=== PATIENT | male | born 1970 | race Caucasian/White ===

== ENCOUNTER 2016-10-20 03:15 | Observation (INO) | payer OTHER ==
[~2016-10-20] VITALS: Ht 180.3 cm; Wt 102.1 kg
[2016-10-20] VITALS (22 sets, daily range): BP systolic 147–229; BP diastolic 89–134; PULSE 71–100; RESP 15–21; O2SAT 95–99
[~2016-10-20 03:15] MED LIST: ASPI-973 PO; CETI10CA PO; CLOP75TA3 PO; DILT120C83 PO; GEMF600T PO; HYDR-3940 PO; INSU100I13 SUBQ; INSU100V28 SUBQ; LIP40 PO; LISI-567 PO; NITR0.4T SL; SERT100T PO; TRAZ-115 PO; [UNRECOGNIZED DRUG - CODE] TOPICAL
--- NOTE | 2016-10-20 03:28 | ED.REPORT ---
HPI-Back Pain 40 and Over Date of Service Oct 20, 2016 ED Provider: Dr. Ean Alvarado M.D. The patient is a 46 year old male with a medical history including CAD, CKD, pancreatitis, hepatitis C, diabetes mellitus, and hypertension who presents to the ED with back pain onset this morning, while sitting watching TV. Associated symptoms include bilateral calf and feet pain, left shoulder pain, and generalized weakness. He was found to be hypertensive at 229/134 in triage. The patient denies other symptoms. Nursing Notes Stated Complaint: BACK,BILATERAL KNEE, AND LEFT SHOULDER PAIN Chief Complaint: General Complaint Nursing Notes Reviewed: Yes Allergies: Coded Allergies: Beta-Blockers (Beta-Adrenergic Bloc (Verified Allergy, Severe, "see lights ", 10/20/16) Penicillins (Verified Allergy, Severe, rashes, 10/20/16) celecoxib (Verified Allergy, Severe, rashes, 10/20/16) TAKING ASPIRIN AT HOME hydrocodone bitartrate (Verified Allergy, Severe, rash.MS OKAY, 10/20/16) agitation zolpidem tartrate (Verified Allergy, Severe, Agitation, 10/20/16) TAPE (Verified Allergy, Intermediate, Rash,Itching,, 10/20/16) oxycodone (Verified Allergy, Intermediate, RASH, ITCHING, 10/20/16) alprazolam (Verified Allergy, Unknown, Hallucinations, 10/20/16) ibuprofen (Verified Allergy, Unknown, Kidney problems, 10/20/16) TAKING ASPIRIN AT HOME Scheduled Aspirin (Aspirin) 81 Mg Tablet 81 MG PO DAILY Atorvastatin (Lipitor) 40 Mg Tablet 40 MG PO DAILY Cetirizine HCl (Zyrtec) 10 Mg Capsule 10 MG PO HS Clonidine 0.3 mg/day Patch (Catapres TTS-3) 1 Each Patch 1 PATCH TOPICAL Q7D Clopidogrel Bisulfate (Plavix) 75 Mg Tablet 75 MG PO DAILY Diltiazem ER (Cardizem CD) 120 Mg Cap.er.24h 120 MG PO DAILY Gemfibrozil (Lopid) 600 Mg Tablet 600 MG PO BIDAC Hydralazine (Hydralazine) 50 Mg Tablet 100 MG PO BID Insulin Glargine (Lantus U100 Solostar Insulin Pen) 100 Unit/1 Ml Insuln.pen 40 UNIT SUBQ HS Insulin Regular, Human (HUMulin-R U100 Insulin Vial) 100 Unit/1 Ml Vial 15 UNITS SUBQ 2-3X/day Lisinopril (Lisinopril) 20 Mg Tablet 20 MG PO DAILY Sertraline HCl (Zoloft) 100 Mg Tablet 200 MG PO DAILY Trazodone (Trazodone) 50 Mg Tablet 50 MG PO HS Scheduled PRN Nitroglycerin SL (Nitrostat) 0.4 Mg Tab.subl 0.4 MG SL Q5MIN PRN PRN For Chest Pain General Time Seen by MD: 03:28 Chief Complaint Back pain Hx Obtained From: Patient Arrived By: Walk-in Sudden in Onset?: Yes Onset Occurred: 1 - 4 hours ago Symptom Duration: Since onset Caused by: Spontaneous/no mechanism Location: : Generalized (Back, lower extremities, left shoulder) Quality: Painful Severity: Current: Moderate Severity: Maximum: Moderate Pertinent Negative: Relieved by nothing Related History: Reports: Pancreatitis Recent Healthcare: No recent doctor visit Past Medical History Past Medical History [place] CAD Hepatitis C, chronic Kidney disease (chronic) with baseline creatinine 1.4 Pancreatitis History of cellulitis ( admit Jan 08-2015, I&D required for right middle finger) Obstructive sleep apnea Reports: Coronary artery disease, Diabetes mellitus, Hyperlipidemia, Hypertension Past Surgical History Multiple orthopedic surgeries, including four shoulder surgeries, four hand surgeries (including carpal tunnel release bilaterally), left knee surgery, cholecystectomy, tonsillectomy. Two Stents LAD 07/05/14, 3x cardiac stents total I&D of right middle finger on 01/10/2016 Family History Reports: Coronary artery disease, Hypertension Smoking History Former Smoker Social History Alcohol Use: "Social" Drug Use: Denies drug use Other Social History: Smokeless tobacco, Good social support, , Local resident Ambulatory Status Independent Review of Systems Review of Systems Note: + Hypertension at 229/134 Constitutional: Reports: Weakness - generalized, Denies: Fever Respiratory: Denies: Non-productive cough, Shortness of breath GI: Denies: Diarrhea, Vomiting Musculoskeletal: Reports: Back pain, Extremity pain (Bilateral calf and feet), Joint pain (Left shoulder) Complete sys rev & neg: except as marked. Physical Exam Initial Vital Signs Vital Signs (First) Date Time Temp Pulse Resp B/P Pulse Ox O2 Delivery O2 Flow Rate FiO2 10/20/16 03:20 35.6 100 18 229/134 99 Room Air Initial VS: Reviewed, Vital signs abnormal Head / Eyes: Atraumatic, Normocephalic ENT: Conjunctiva normal, No scleral icterus Neck: Supple, Full range of motion Skin: Warm, Dry, No cyanosis Psychiatric: Mood/affect normal, Behavior normal, Normal thought content General/Constitutional: Awake, Alert, No acute distress Respiratory / Chest: Breath sounds NL, Breath sounds = bilat, No respiratory distress Cardiovascular: Regular rhythm, Heart sounds NL Heart Rate / Rhythm: Positive: Tachycardia (Mild) Abdomen: Soft, Non-tender Neurologic: Oriented X3, Speech NL, No motor deficits, No sensory deficits Lower Extremity / Pelvis / MS: Neurologic intact, Vascular intact (Good distal pulses) Skin: Color NL, No rash, Warm, Dry Interpretation & Diagnostics Lab Results Interpretation Result Diagram: 10/20/16 0345 10/20/16 0345 Test 10/20/16 03:45 White Blood Count 6.2th/mm3 (3.8-10.1) Red Blood Count 4.50mil/mm3 (4.40-5.80) Hemoglobin 13.6g/dL (13.8-17.2) Hematocrit 37.9% (41.0-50.0) Mean Corpuscular Volume 84.2fL (81-100) Mean Corpuscular Hemoglobin 30.2pg (27.0-35.0) Mean Corpuscular Hemoglobin Concent 35.9% (32.0-37.0) Red Cell Distribution Width 13.1% (12.3-15.4) Platelet Count 159bil/L (150-400) Neutrophils (%) (Auto) 54.4% (40-74) Lymphocytes (%) (Auto) 36.7% (14-46) Monocytes (%) (Auto) 6.6% (4-12) Eosinophils (%) (Auto) 1.6% (0-5) Basophils (%) (Auto) 0.5% (0-3) Sodium Level 140mEq/L (134-144) Potassium Level 4.6mEq/L (3.5-5.2) Chloride Level 107mEq/L (97-108) Carbon Dioxide Level 17mmol/L (18-29) Blood Urea Nitrogen 46mg/dL (6-24) Creatinine 2.58mg/dL (0.76-1.27) Estimat Glomerular Filtration Rate 29mL/min (>59) Glucose Level 241mg/dL (60-99) Calcium Level 9.4mg/dL (8.5-10.1) Magnesium Level 1.5mg/dL (1.6-2.6) Total Bilirubin 0.2mg/dL (0.0-1.2) Aspartate Amino Transf (AST/SGOT) 14U/L (0-50) Alanine Aminotransferase (ALT/SGPT) 13U/L (0-44) Alkaline Phosphatase 51U/L (25-150) Troponin T 0.011ug/L (0.0-0.011) Total Protein 7.2g/dL (6.4-8.4) Albumin 4.4g/dL (3.4-5.0) Lab Results Interpretation: Chronic kidney injury, elevated blood glucose, CPK is pending ECG Interpretation ECG Interpretation: Sinus rhythm rate 98 Time: 03:25 Interpreted by: ED physician X-Ray Chest Interpretation Chest Xray Interpretation: Normal View: Portable, 1 view Interpretation / Wet Read by: Wet read ED physician Re-Eval/Medical Decision Med Decision/Clinical Course 6-year-old male with a history of high blood pressure currently on 5 medications and presents with elevated blood pressure, generalized body aches, and headache. He was initially evaluated by me He was treated with IV propranolol 3 doses and a sublingual nitroglycerin 3 doses with improvement but not complete normalization of his blood pressure. His care is now being turned over at change of shift to Dr. Hurt for further monitoring and evaluation and treatment and final disposition. Source of Hx: Old records Re-Evaluation/Progress : Time of Eval: 06:04 Re-Evaluation/Progress Note: Patient developed a headache after the Nitro. His pain improved for a short time but has since returned. Discussed with patient lab and x-ray results, diagnosis, and plan for transfer of care to Dr. Hurt at change of shift. Counseled Regarding: Diagnosis, Lab results Discharge & Departure Shift Change Sign-Out Patient Care Transferred: Yes (Dr. Hurt) Discussed Complaint(s): Yes Laboratory Evaluation: Lab evaluation discussed Imaging Studies: Imaging discussed Response to Therapy: Improved Impression: Primary Impression: Hypertensive urgency Additional Impressions: Body aches Hypertension Hypertension type: essential hypertension Qualified Code: I10 - Essential ( primary) hypertension Referrals: Jose Ambriz MD (PCP) Care Transferred to: Dr. Hurt Care Transferred at: 06:00 Scribe Attestation Portions of this note were transcribed by Charisma Montes. I, Dr. Alvarado, personally performed the history, physical exam, and medical decision-making; I reviewed and confirmed the accuracy of the information in the transcribed note. Signed by: Matt Posadas, 10/20/2016, 06:15 copies to: Jose Ambriz MD, Howard L MD Oct 20, 2016 03:28 CHARISMA MONTES Oct 20, 2016 03:35
[2016-10-20] MEDS ORDERED: 0.9% Sodium Chloride 1,000 ML IV ONE (03:35)
[2016-10-20 03:55] LABS: BASOPHILS % (AUTO) 0.5 % (0-3); EOSINOPHILS % (AUTO) 1.6 % (0-5); MONOCYTES % (AUTO) 6.6 % (4-12); Mean Corpuscular Hemoglobin 30.2 pg (27.0-35.0); Mean Corpuscular Volume 84.2 fL (81-100); NEUTROPHILS % (AUTO) 54.4 % (40-74); Platelet Count 159 bil/L (150-400)
[2016-10-20] MEDS ORDERED: Ondansetron 2 mg/mL 2 mL Inj ONE (04:01)
[2016-10-20] MEDS: HYDROmorphone 0.5 mg/0.5 mL iSecure Syringe IVPUSH PRN ×2 (04:02→06:13)
[2016-10-20] MEDS: MeTOProlol 1 mg/mL 5 mL Inj IVPUSH SCH ×3 (04:02→04:24)
[2016-10-20] MEDS ORDERED: Ondansetron 2 mg/mL 2 mL Inj IVPUSH PRN ×2 (04:05→08:05)
[2016-10-20 04:21] LABS: TROPONIN T 0.011 ug/L (0.0-0.011)
[2016-10-20 04:37] LABS: Magnesium 1.5 mg/dL (1.6-2.6)
[2016-10-20] MEDS ORDERED: Magnesium Sulf 2 Gm/50mL Water 2 GM in IV Premix 1 EACH IV ONE (06:10)
[2016-10-20] MEDS ORDERED: Alum-Mag Hydrox-Simeth 30 mL Suspension PO PRN (08:05)
[2016-10-20] MEDS ORDERED: HYDROcodone-APAP 5-325 mg Tablet PO PRN (08:05)
[2016-10-20] MEDS ORDERED: Polyethylene Glycol (PEG) 17 Gm Powder PO PRN (08:05)
--- NOTE | 2016-10-20 08:07 | PCM.HPMED ---
Subjective Date of Service Oct 20, 2016 Primary Provider: Admitting Physician: Primary Care Physician: Clinic,[facility] Residency Attending Physician: Allergies Coded Allergies: Beta-Blockers (Beta-Adrenergic Bloc (Verified Allergy, Severe, "see lights ", 10/20/16) Penicillins (Verified Allergy, Severe, rashes, 10/20/16) celecoxib (Verified Allergy, Severe, rashes, 10/20/16) TAKING ASPIRIN AT HOME hydrocodone bitartrate (Verified Allergy, Severe, rash.MS OKAY, 10/20/16) agitation zolpidem tartrate (Verified Allergy, Severe, Agitation, 10/20/16) TAPE (Verified Allergy, Intermediate, Rash,Itching,, 10/20/16) oxycodone (Verified Allergy, Intermediate, RASH, ITCHING, 10/20/16) alprazolam (Verified Allergy, Unknown, Hallucinations, 10/20/16) ibuprofen (Verified Allergy, Unknown, Kidney problems, 10/20/16) TAKING ASPIRIN AT HOME Exam Lab and Diagnostics Result Diagram: 10/20/16 0345 10/20/16 0345 Assessment & Plan Attending Statement Entered in error. Pt admitted to alterative. Nacho Archibald DO Oct 20, 2016 08:07 Aspirin (Aspirin) 81 Mg Tablet 81 MG PO DAILY Atorvastatin (Lipitor) 40 Mg Tablet 40 MG PO DAILY Cetirizine HCl (Zyrtec) 10 Mg Capsule 10 MG PO HS Clonidine 0.3 mg/day Patch (Catapres TTS-3) 1 Each Patch 1 PATCH TOPICAL Q7D Clopidogrel Bisulfate (Plavix) 75 Mg Tablet 75 MG PO DAILY Diltiazem ER (Cardizem CD) 120 Mg Cap.er.24h 120 MG PO DAILY Gemfibrozil (Lopid) 600 Mg Tablet 600 MG PO BIDAC Hydralazine (Hydralazine) 50 Mg Tablet 100 MG PO BID Insulin Glargine (Lantus U100 Solostar Insulin Pen) 100 Unit/1 Ml Insuln.pen 40 UNIT SUBQ HS Insulin Regular, Human (HUMulin-R U100 Insulin Vial) 100 Unit/1 Ml Vial 15 UNITS SUBQ 2-3X/day Lisinopril (Lisinopril) 20 Mg Tablet 20 MG PO DAILY Sertraline HCl (Zoloft) 100 Mg Tablet 200 MG PO DAILY Trazodone (Trazodone) 50 Mg Tablet 50 MG PO HS Scheduled PRN Nitroglycerin SL (Nitrostat) 0.4 Mg Tab.subl 0.4 MG SL Q5MIN PRN PRN For Chest Pain PMH [place] CAD Hepatitis C, chronic Kidney disease (chronic) with baseline creatinine 1.4 Pancreatitis History of cellulitis ( admit Jan 08-2015, I&D required for right middle finger) Obstructive sleep apnea Reports: Coronary artery disease, Diabetes mellitus, Hyperlipidemia, Hypertension Surgical History Multiple orthopedic surgeries, including four shoulder surgeries, four hand surgeries (including carpal tunnel release bilaterally), left knee surgery, cholecystectomy, tonsillectomy. Two Stents LAD 07/05/14, 3x cardiac stents total I&D of right middle finger on 01/10/2016 Social History Hx Alcohol Use: No Hx Substance Use: No Hx Tobacco Use: No ([id number] history quit in 2000) Smoking Status: Former Smoker Exam Vital Signs Vital Sign - Last Date Time Temp Pulse Resp B/P Pulse Ox O2 Delivery O2 Flow Rate FiO2 10/20/16 08:01 78 21 167/114 95 Room Air 10/20/16 03:20 35.6 Intake and Output 10/19/16 10/19/16 10/20/16 Cumulative From/Thru 15:00 23:00 07:00 10/20/16 03:20 - 10/20/16 04:03 Intake Total 1000 ml 1000 ml Balance 1000 ml 1000 ml Intake IV Total 1000 ml 1000 ml Lab and Diagnostics Result Diagram: 10/20/16 0345 10/20/16 0345 Nacho Archibald DO Oct 20, 2016 08:07
--- NOTE | 2016-10-20 08:30 | DRSVH ---
PROCEDURE: X-RAY CHEST ONE VIEW, PORTABLE ([id number]) INDICATIONS: hypertensive crisis TECHNIQUE: One view of the chest was acquired. COMPARISON: [facility], CR, XR CHEST 1VW (PORTABLE), 02/14/2016, 20:18. FINDINGS: Surgical changes and devices: Screws project in the right glenoid. Lungs and pleura: No pleural effusions or pneumothorax. Lungs are clear. Mediastinum: Mediastinal contours appear normal. Heart size is normal. Bones and chest wall: No suspicious bony lesions. Overlying soft tissues appear unremarkable. IMPRESSION: No acute disease Dictated by: Don Ngo M.D. on 10/20/2016 at 8:27 Approved by: Don Ngo M.D. on 10/20/2016 at 8:28
[2016-10-20] MEDS ORDERED: TORS20TA3 PO (08:36)
[2016-10-20] MEDS ORDERED: ACET1TAB12 PO (08:36)
[2016-10-20] MEDS ORDERED: SODI650T PO (08:36)
[2016-10-20] MEDS ORDERED: DULO60CA61 PO (08:36)
[2016-10-20 10:24] LABS: APPEARANCE,URINE HAZY (CLEAR,HAZY); COLOR,URINE STRAW (YELLOW); PH,URINE 5.5 (5.0-8.0)
[2016-10-20 10:25] LABS: OCCULT BLOOD,URINE NEGATIVE (NEGATIVE); UROBILINOGEN,URINE NORMAL (NORMAL)
--- NOTE | 2016-10-20 10:48 | DRSVH ---
PROCEDURE: CT BRAIN WITHOUT CONTRAST ([id number]) INDICATIONS: headache hypertension TECHNIQUE: Noncontrast 4.5 mm thick angled axial sections acquired from the foramen magnum to the vertex, with c oronal reformats. COMPARISON: [facility], CT, BRAIN W/O CONTRAST, 07/14/2015, 12:54. FINDINGS: Image quality: Excellent. CSF spaces: Basal cisterns are patent. No extra-axial fluid collections. Ventricles are normal in size and shape. Brain: No midline shift. No intracranial masses or hemorrhage. Sanchez-white matter interface is norm al. Skull and face: Calvarium and visualized facial bones are intact, without suspicious lesions. Sinuses: Visualized sinuses and mastoids are clear. IMPRESSION: No acute intracranial disease process. Dictated by: Rose Rangel MD, PhD on 10/20/2016 at 10:45 Approved by: Rose Rangel MD, PhD on 10/20/2016 at 10:47
[2016-10-20] MEDS ORDERED: INSU100I13 SUBQ (12:42)
--- NOTE | 2016-10-20 12:43 | NUR ---
Admit [facility] ER around 914. C/o back, shoulder, feet pain 08/10. BP 150/100, HR 70's in sinus rhythm, BG 161. Med Rec completed in ER by RN but reviewed up here and made minor changes. Admit completed. Oriented to room and call light. Pt ordered breakfast, at the bedside. All belongings brought with. MD aware and rounding.
--- NOTE | 2016-10-20 13:34 | DRSVH ---
PROCEDURE: MRI LUMBAR SPINE WITHOUT CONTRAST ([id number]) INDICATIONS: sudden onset back pain TECHNIQUE: Noncontrast sagittal T1 spin echo and T2 fast echo, sagittal STIR, axial T1 and T2 fast spin echo thr ough the lumbar spine. In cases with scoliosis, additional coronal T2 fast spin echo may be performe d. COMPARISON: None. FINDINGS: Image quality: Excellent. Alignment and Curvature: There is normal bony alignment. Bone Marrow: Marrow is of normal overall signal. No acute vertebral body compression fractures. Spinal Cord: Conus medullaris terminates at the T12-L1 level. Visualized cord demonstrates normal s ignal and size. Paraspinous Soft Tissues: No paravertebral masses. Mild subcutaneous dependent edema at the level o f L4-L5 L1-L2: Broad-based posterior disc bulge with minimal canal narrowing. No foraminal stenosis L2-L3: Broad-based posterior disc bulge and mild bilateral facet disease. Minimal canal narrowing. Mi ld right and moderate left foraminal stenoses L3-L4: Broad-based posterior disc bulge and mild bilateral facet disease. Mild canal narrowing. Moder ate left and mild right foraminal stenosis L4-L5: Minimal broad-based posterior disc bulge and bilateral facet disease. Minimal canal narrowing. Mild bilateral foraminal narrowing L5-S1: Broad-based posterior disc bulge and bilateral facet arthropathy. No canal stenosis. Mild righ t and no definite left foraminal stenoses IMPRESSION: Multilevel mild disc degeneration and facet arthropathy. No high-grade canal stenosis. Multiple, bilateral mild to moderate foraminal stenoses (most pronounced at L2-L3 and L3-L4 left) as detailed above by spinal level. Dictated by: Don Ngo M.D. on 10/20/2016 at 13:27 Approved by: Don Ngo M.D. on 10/20/2016 at 13:33
[2016-10-20] MEDS ORDERED: Glucose 40% Oral Gel 15 Gm Tube PO PRN (14:10)
--- NOTE | 2016-10-20 14:10 | CONS ---
[address] [address] CONSULTATION REPORT PATIENT: TOYIN KAHN : 1970 MR#: [id number] ADMIT: 10/20/2016 JOB ID: [id number] DATE OF SERVICE: 10/20/2016 RENAL CONSULTATION: HISTORY: The patient is a rather unfortunate 81-year-old white male, who was admitted to [facility] for shortness of breath and acute anemia. He has a history of end-stage renal disease and renal consultation is being sought for further evaluation of his end-stage renal disease. The patient has a history of multiple medical problems, most significantly he has metastatic stage IV colon cancer with metastasis to his liver. He has undergone a colectomy and radiation therapy. However, he continues to require ongoing transfusions about every 2-3 weeks for chronic blood loss and continues to show manifestations of cachexia and malnutrition. He has been on dialysis for several months, and despite his dismal prognosis, the patient wishes to have everything done. I have had numerous discussions with him about this and he has continued to refuse any evaluation from palliative care or hospice. Once again, yesterday he had a significantly low hemoglobin and hematocrit and was scheduled to get a unit of blood during his dialysis treatment yesterday. Following his treatment he began to complain of shortness of breath and was seen in the emergency department. Workup of this showed some evidence of COPD and bilateral pleural effusions which were mild. He was also seen by Gastroenterology who was quite familiar with his case. He has had several upper and lower endoscopies. The most recent one showed a large gastric lesion which may represent a secondary malignancy versus an ulcer. He is having a nuclear medicine study today for further evaluation. At time of admission, his hemoglobin was 7.0. This morning he states that he is still has some shortness of breath but denies any headache, nausea, vomiting, cough, wheezing, and diminished appetite or chest pain. The patient is also quite stoic and not always completely forthcoming with physical complaints. PAST MEDICAL HISTORY: Is significant for end-stage renal disease. The etiology for his end-stage renal disease is due to severe systolic congestive heart failure, hypertensive nephrosclerosis, and diabetic nephropathy. He also has a longstanding history of metastatic colon cancer, which has continued to progress. There is also a history of gout, recurrent upper GI bleed, chronic anemia of multiple etiologies, diabetes with diabetic nephropathy, COPD, and congestive heart failure. PAST SURGICAL HISTORY: Is significant for colectomy, coronary artery bypass graft surgery, back and neck surgery and pacemaker placement. ALLERGIES: He is allergic to PENICILLIN, METFORMIN and PPD. SOCIAL HISTORY: He has a longstanding history of chronic tobacco use but quit smoking some time ago. He admits to 1-3 drinks per week. He is a retired and lives at home as his is at an extended care facility. MEDICATIONS: At time of my evaluation, include labetalol, allopurinol, atorvastatin. REVIEW OF SYSTEMS: As detailed above. PHYSICAL EXAMINATION: Revealed a thin, frail, cachectic, sallow complected 81-year-old white male who was alert and oriented x3, in some mild chronic respiratory distress. He had evidence of mild conversational dyspnea but this is his norm. Vital signs showed a blood pressure of 122/84 with a heart rate of 90. HEENT examination is remarkable for pale sclerae, and bitemporal wasting. Neck is supple without adenopathy, thyromegaly or jugular venous distention. Lungs showed a few scattered rhonchi and rales. Heart was regular and rhythmical with a soft systolic murmur. Abdomen was mildly distended without any tenderness, rebound or guarding noted. He did have evidence of hepatomegaly. Extremities did not show any evidence of any clubbing, cyanosis or edema. Skin turgor is good. LABORATORY EXAMINATION: This morning his hemoglobin is 7.4, hematocrit 24.3. Sodium is 134, potassium 4.6, chloride 93, bicarbonate 26, BUN and creatinine were 20 and 2.4. His AST and ALT were normal. However, his alkaline phosphatase was 356. IMPRESSION: 1. End-stage renal disease-dialysis dependent. 2. Hypertension with hypertensive heart disease and hypertensive nephrosclerosis. 3. Diabetic nephropathy. 4. Acute anemia secondary to blood loss. RECOMMENDATION: The patient is being dialyzed today for 3.5 hours on a 2 potassium bath and a 450 blood flow. He will be given 2 units of packed red blood cells and we will run the citrate protocol. Once again I would like to thank you for allowing me to participate in the care of this most pleasant and interesting patient. I will be following him closely with you.
--- NOTE | 2016-10-20 16:02 | PCM.HPMED ---
Subjective Date of Service Oct 20, 2016 Primary Provider: Admitting Physician: Nacho Archibald DO Primary Care Physician: Alexx,[facility] Residency Attending Physician: Nacho Archibald DO Chief Complaint: Hypertensive emergency with headache History of Present Illness: 46-year-old male with a history of CAD who underwent PCI of the RCA without stent 07/15, type II diabetes, hypertension, CKD stage G4/3A, and history of hepatitis C and pancreatitis who presented to the ED this morning due to severe back pain that began very early this morning. Patient states that the pain is sharp across his lumbar region, is associated with burning sensation in the lower extremities bilaterally. Patient also complains of left upper extremity neuropathic pain with pain on the left side of his cervical region. Patient has no underlying history of neuropathy from diabetes and states that this is all new and acutely worse. Patient denies recent change in activity level, stating that he is not overly active to begin with, stating that this started while watching TV. Denies any bending and twisting. Denies bowel or bladder incontinence. Patient denies other review of systems. In the ED the patient's blood pressure was 229/134 and the patient was initially treated with metoprolol 3, nitroglycerine, and hydralazine without effect. Dr. Ryan from nephrology was consulted and started lisinopril, chlorothiazide, and Dilaudid 2, which brought the patient's blood pressure down into the 150s. Patient also received aspirin and Plavix. At home the patient is taking chlorthalidone 25 mg, clonidine 0.3 mg patch, hydralazine 100 mg, lisinopril 20 mg, and torsemide 20 mg. Patient has also been referred to [facility] due to refractory hypertension. Patient has also had a renal ultrasound with vascular assessment that was negative for renal artery stenosis. His cigar head perforator is Dr. Ryan Review of Systems: Complete review of systems performed, pertinent positives and negatives per HPI. Allergies Coded Allergies: Beta-Blockers (Beta-Adrenergic Bloc (Verified Allergy, Severe, "see lights ", 10/20/16) Penicillins (Verified Allergy, Severe, rashes, 10/20/16) celecoxib (Verified Allergy, Severe, rashes, 10/20/16) TAKING ASPIRIN AT HOME hydrocodone bitartrate (Verified Allergy, Severe, rash.MS OKAY, 10/20/16) agitation zolpidem tartrate (Verified Allergy, Severe, Agitation, 10/20/16) TAPE (Verified Allergy, Intermediate, Rash,Itching,, 10/20/16) oxycodone (Verified Allergy, Intermediate, RASH, ITCHING, 10/20/16) alprazolam (Verified Allergy, Unknown, Hallucinations, 10/20/16) ibuprofen (Verified Allergy, Unknown, Kidney problems, 10/20/16) TAKING ASPIRIN AT HOME Home Medications Aspirin (Aspirin) 81 Mg Tablet 81 MG PO DAILY Atorvastatin (Lipitor) 40 Mg Tablet 40 MG PO DAILY Cetirizine HCl (Zyrtec) 10 Mg Capsule 10 MG PO HS Clonidine 0.3 mg/day Patch (Catapres TTS-3) 1 Each Patch 1 PATCH TOPICAL Q7D Clopidogrel Bisulfate (Plavix) 75 Mg Tablet 75 MG PO DAILY Diltiazem ER (Cardizem CD) 120 Mg Cap.er.24h 120 MG PO DAILY Gemfibrozil (Lopid) 600 Mg Tablet 600 MG PO BIDAC Hydralazine (Hydralazine) 50 Mg Tablet 100 MG PO BID Insulin Glargine (Lantus U100 Solostar Insulin Pen) 100 Unit/1 Ml Insuln.pen 40 UNIT SUBQ HS Insulin Regular, Human (HUMulin-R U100 Insulin Vial) 100 Unit/1 Ml Vial 15 UNITS SUBQ 2-3X/day Lisinopril (Lisinopril) 20 Mg Tablet 20 MG PO DAILY Sertraline HCl (Zoloft) 100 Mg Tablet 200 MG PO DAILY Trazodone (Trazodone) 50 Mg Tablet 50 MG PO HS Nitroglycerin SL (Nitrostat) 0.4 Mg Tab.subl 0.4 MG SL Q5MIN PRN PRN For Chest Pain PMH SD CAD Hepatitis C, chronic Kidney disease (chronic) with baseline creatinine 1.4 Pancreatitis History of cellulitis ( admit Jan 08-2015, I&D required for right middle finger) Obstructive sleep apnea Reports: Coronary artery disease, Diabetes mellitus, Hyperlipidemia, Hypertension Surgical History Multiple orthopedic surgeries, including four shoulder surgeries, four hand surgeries (including carpal tunnel release bilaterally), left knee surgery, cholecystectomy, tonsillectomy. Two Stents LAD 07/05/14, 3x cardiac stents total I&D of right middle finger on 01/10/2016 Family History Family hx of liver and lung cancer Social History Hx Alcohol Use: Yes (in 20's) Hx Substance Use: Yes (in 20's) Hx Tobacco Use: No (82-onuk-cqwk history quit in 2000) Smoking Status: Former Smoker Living Arrangement: with Family Exam Vital Signs Vital Sign - Last Date Time Temp Pulse Resp B/P Pulse Ox O2 Delivery O2 Flow Rate FiO2 10/20/16 13:33 37.0 84 18 157/89 97 Room Air Intake and Output 10/19/16 10/19/16 10/20/16 Cumulative From/Thru 15:00 23:00 07:00 10/20/16 03:20 - 10/20/16 04:03 Intake Total 1000 ml 1000 ml Balance 1000 ml 1000 ml Intake IV Total 1000 ml 1000 ml Exam General: Patient awake and alert, no acute distress HEENT: PERRLA, EOMI, mucous membranes moist, no JVD, neck supple, no sinus tenderness on percussion Lymph: No lymphadenopathy Cardiac: Regular rate and rhythm, no murmurs, no rubs, no gallops; questionable S2 splitting heard only over the tricuspid Respiratory: CTA bilaterally no wheezes Abdomen: Obese, soft, nondistended, positive bowel sounds Osteopathic: Tenderness palpated on the spinous process T12 through S1 with paraspinal spasms bilaterally; left cervical paraspinal muscles spasm as well. Neuro: Grossly intact throughout Extremity: Trace edema in the lower extremities bilaterally, strength 5 out of 5 , tender to moderate palpation distal tibia Psych: Appropriate mood and affect Lab and Diagnostics Result Diagram: 10/20/16 0345 10/20/16 0345 X-Rays, CTs and MRIs Chest x-ray No acute disease Dictated by: Don Ngo M.D. on 10/20/2016 at 8:[address] No acute intracranial disease process. Dictated by: Rose Rangel MD, PhD on 10/20/2016 at 10:45 Lumbar spine MRI Multilevel mild disc degeneration and facet arthropathy. No high-grade canal stenosis. Multiple, bilateral mild to moderate foraminal stenoses (most pronounced at L2- L3 and L3-L4 left) as detailed above by spinal level. Dictated by: Don Ngo M.D. on 10/20/2016 at 13:27 Assessment & Plan 46-year-old male who presents with new onset neuropathies in the bilateral lower extremity and left upper extremity with acute onset of lumbar back pain who was found to have blood pressure with SBP greater than 220 and complaining also of a headache. Patient was treated with multiple medications to decrease his pressure to 157/89. Hypertensive emergency; present admission; resolving -Patient's very difficult to treat hypertension on chlorthalidone 25 mg, clonidine 0.3 mg patch, hydralazine 100 mg, lisinopril 20 mg, diltiazem 120 mg and torsemide 20 mg at home; patient states he is compliant -Patient has undergone previous ultrasound for renal artery stenosis and was evaluated by with minimal progress -He follows with Dr. Park -Restarted all home blood pressure medications patient is currently responding well -Patient has a sensitivity to beta blockers and has advanced kidney disease which complicates his course -If patient requires additional emergency decrease in blood pressure medication could try nicardipine drip Type II diabetes; well-controlled; ongoing -Patient's recent A1c was 6.3 -Decrease patient's home Lantus dose from 30 units at night to 20 -Prandial insulin and moderate sliding scale ordered -Continue to monitor blood sugar Chronic kidney disease stage G4/IIIa with decreased GFR and mild AG Acidosis; present admission; stable -Patient is following up with Dr. Ryan outpatient -Nephrology consultation -Avoid NSAIDs for pain Acute onset lower back pain; present admission; controlled -Patient presents with acute onset of cervical and lumbar back pain with what sounds like radiculopathy; no incontinence reported or paresthesias in the saddle region -Exam patient has noticeable bilateral spasms in the lumbar region as well as left-sided spasm of the trapezius -MRI of the lumbar region showed multilevel disc degeneration with mild to moderate foraminal stenosis -Patient receiving Dilaudid by mouth -OMT to be performed by hospitalist team -August trial gabapentin Hypomagnesemia; present admission; ongoing -Presented with a magnesium 1.5 -Replaced History of CAD; present admission; ongoing -Patient denies any ongoing chest pain but does have a history of PCI in 2015 -Patient placed on aspirin and Plavix on presentation -Will continue as he takes these outpatient Depression/anxiety/insomnia; present medicine; stable -Continue sertraline and trazodone for sleep Disposition: Patient is being placed on observation with expected length of stay less than 24 hours pending resolution of his hypertensive emergency. Patient wanted to follow up with PCP within a week for additional evaluation. Pain Evaluation: Adequate Pain Control VTE Prophylaxis Indicated: Contraindicated Resuscitation Status: CPR: Attempt Resuscitation Attending Statement The patient was seen and examined together with Dr. Carlisle on 10/20/16 and I have added additional information to the note above. Chandu Carlisle DO Oct 20, 2016 14:11 Elizabeth Max DO Oct 21, 2016 12:28
--- NOTE | 2016-10-20 16:05 | NUR ---
Social Work: Initial Assessment D: EMR reviewed. Pt is a 53 y/o male admited for N/V/D/ERSD/D.M. per H&P. PARVIN met with pt at bedside to conduct initial assessment. Pt was alert and oriented x3. SW explained role and wrote phone number on white board. Pt's insurance is Medicare and [place] [employer]. PCP is Chandu Carlisle DO. Pt gave verbal consent to contact sister Danette Hwang ([phone]) for discharge planning. PARVIN confirmed pt has completed DPOA/advanced directive ppw and provided a copy to the hospital. Pt does not have LTC insurance or VA benefits. Pt has no hx of HH or a SNF. Pt uses a wheelchair and a walker at baseline. Pt is a chronic dialysis pt. Pt stated he has a dialysis appointment at 10:30am 10/21. SW will inform MD. Pt states he needs assistance with most ADLS and has a caregiver through [place] 24 hours per week. SW confirmed that pt does not drive and relies on caregiver and family for transportation. Pt lives alone in a single-story apartment in [place] with 2-steps to enter. Pt confirmed family will provide transport home via POV when pt is medically stable to discharge. SW will continue to follow for needs. A: Pt who is on chronic dialysis at baseline and has a caregiver 24 hours a week through [place]. P: SW to update MD on pt's dialysis appointment at 10:30am 10/22. Pt confirmed family will provide transport home via POV when pt is medically stable to discharge. SW will continue to follow for needs. MIRYAM Yanez Addendum: 10/20/16 at 1612 by RACHAEL SHELLEY Amended: Links added.
--- NOTE | 2016-10-20 16:15 | PCM.PROC ---
Procedure Note Date of Service: Oct 20, 2016 Procedure: Procedure: Osteopathic Manipulative Treatment Subjective: The patient complains of acute back and neck pain starting a few days ago. The patient rates his current pain at an 8/10. The patient reports the pain as sharp and a burning sensation into the lower extremities. The patient denies any loss of bowel or bladder control and denies any traumatic event. The patient states that the pain started while watching TV earlier today. The patient states that not lying flat worsens the pain and lying on his side helps to relieve the neck and back pain. The patient states that the neck pain and back pain have recently increased. MRI was performed and shows some stenosis in the lumbar foramen. Risks and benefits of OMT were explained to the patient and verbal consent obtained. Osteopathic Structural Exam: Head: OAESrRl, Cervicals: C3-7 FSrRr, R SCM hypertonicity Thoracics: outlet rotated L, T3-8 NRrSl Lumbars: L3-5 NRrSl Abdomen: Diaphragm restriction on the L Ribs: inhaled first rib on the L, rib 6 inhaled on the R Pelvis: anterior L innominate Sacrum: Willam L, L S2 restriction Upper extremities: Latissimus dorsi hypertonicity on the L > R, L calvicle restriction Lower extremities: psoas tender point on the L > R Patient responded well to treatment. Status post treatment the patient stated his pain had reduced to 4/10. Osteopathic treatment modalities used: Myofascial release, Muscle Energy, Cranial, BLT, and soft tissue technique Provider and Assembler Installer Structures: Dr. Max Student Dr. Royer Garnett Student Elizabeth Almanza DO Oct 20, 2016 16:15
--- NOTE | 2016-10-20 17:27 | CONS ---
[address] [address] CONSULTATION REPORT PATIENT: TOYIN KAHN : 1970 MR#: [id number] ADMIT: 10/20/2016 JOB ID: [id number] RENAL CONSULTATION: DATE OF SERVICE: 10/20/2016 HISTORY: This patient is a 46-year-old, white male, who was well-known to me from multiple previous evaluations. He was admitted to [facility] for back pain and hypertension, and Renal consultation is being sought for further evaluation of his chronic kidney disease and hypertension. I am quite familiar with the patient; have been following him for about the last year or so. He has a history of multiple medical problems, which include coronary artery disease which he has undergone PCI of the right coronary artery, poorly-controlled type 2 diabetes which has been complicated by diabetic neuropathy and diabetic renal disease, chronic kidney disease, hepatitis C, hypertension with hypertensive heart disease and hypertensive nephrosclerosis. 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 He also relates a history of chronic back problems and neck problems as a result of several injuries and a llamas lifestyle. Last night he states he awoke about midnight with severe lumbosacral spine. Initially it was confined there but he has had some radiation into his legs and paresthesias to his both distal extremities. He states this is more of a burning-type pain and is aggravated by anything on top of his skin. He states that he has not had this type of sensation in his feet. He does relate a longstanding history of intermittent chronic back pain and neck pain. He has been working quite a bit and this may have aggravated some of this pain. In the emergency department, he was quite hypertensive and in considerable amount of pain. Although he had no evidence of any fluid loss, vomiting, diarrhea, decreased oral intake or increased urination, he was given a L of fluid and was also given metoprolol, although he is allergic to beta-blockers and hydralazine without an effect. He eventually was given Dilaudid which had significant improvement in his blood pressure. His creatinine at time of admission was 2.5 which is what he ran the last time I saw him about a month ago. He states he is currently compliant with his medication and normally his blood pressure is considerably better when he is not in pain. PAST MEDICAL HISTORY: Remarkable for stage 3 chronic kidney disease which is secondary to hypertension and poorly controlled diabetes, obstructive sleep apnea, coronary artery disease, hepatitis C, pancreatitis, hyperlipidemia, and degenerative joint disease of the back. PAST SURGICAL HISTORY: Significant for multiple orthopedic surgeries including four shoulder surgeries, hand surgeries, knee surgery, cholecystectomy, tonsillectomy, several stents placed. I and D of the middle finger. ALLERGIES: 1. BETA BLOCKERS. 2. PENICILLIN. 3. CELECOXIB. 4. HYDROCODONE. 5. ZOLPIDEM. 6. OXYCODONE. 7. ALPRAZOLAM. 8. IBUPROFEN. SOCIAL HISTORY: He denies the current use of alcohol, tobacco, or illicit drugs. 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 FAMILY HISTORY: Remarkable for liver and lung cancer. MEDICATIONS: At time of my evaluation, include aspirin, atorvastatin, clonidine, clopidogrel, diltiazem, gemfibrozil, hydralazine, insulin, lisinopril, sertraline, trazodone and nitroglycerin spray. PHYSICAL EXAMINATION: Revealed a mildly obese 46-year-old, white male who was alert and oriented x3, in no distress at time of my evaluation. Blood pressure was 154/100 with a pulse rate of 71. HEENT examination was unremarkable. Sclerae, cornea and conjunctivae were within normal limits. Neck is supple without adenopathy, thyromegaly or jugular venous distention. Lungs are clear to auscultation. Heart is regular and rhythmical with a soft systolic murmur. Abdomen is soft, without any tenderness, rebound, guarding, masses or hepatosplenomegaly. Extremities did not show any evidence of any clubbing, cyanosis, or edema. Skin turgor is good. LABORATORY EXAMINATION: Sodium is 140, potassium 4.5, chloride 107, bicarbonate 17, BUN and creatinine were 46 and 2.58. Glucose 241. Magnesium was slightly low 1.4. Hemoglobin was 13.6. IMPRESSION: 1. Stage 3 chronic kidney disease. 2. Diabetic nephropathy. 3. Hypertension with hypertensive nephrosclerosis. 4. Acute hypertension secondary to back pain which is resolved with analgesics. RECOMMENDATION: I would not give the patient any more fluids as I do not feel he requires this, and I would strongly recommend getting him appropriate radiographic evaluation for his back pain. Once again, I would like to thank you for allowing me to participate in the care of this most pleasant interesting patient. I will be following him closely with you.
[2016-10-20] MEDS: Insulin LISPRO 300 Unit/3 mL Inj SUBQ SCH ×2 (18:28→20:52)
[2016-10-20] MEDS ORDERED: Insulin GLARgine 100 Unit/mL Syringe SUBQ SCH ×2 (21:00)
[2016-10-21 03:45] VITALS: BP 161/106; PULSE 65; RESP 17; O2SAT 96
[2016-10-21] MEDS: Insulin LISPRO 300 Unit/3 mL Inj SUBQ SCH ×2 (07:59→12:16)
[2016-10-21] MEDS ORDERED: DULoxetine 30 mg DR Capsule PO SCH (08:30)
[2016-10-21 08:32] VITALS: BP 172/110; PULSE 65; RESP 18; O2SAT 98
[2016-10-21 09:00] LABS: Mean Corpuscular Hemoglobin 29.6 pg (27.0-35.0); Mean Corpuscular Volume 85.6 fL (81-100)
[2016-10-21 09:17] LABS: Magnesium 1.6 mg/dL (1.6-2.6)
[2016-10-21 10:14] VITALS: PULSE 73
[2016-10-21] MEDS ORDERED: Magnesium Sulfate 50% Inj 3 GM in Dextrose 5% 100 ML IV ONE (10:20)
--- NOTE | 2016-10-21 10:29 | PCM.DIMED ---
Andrew Polanco DO 10/21/16 1028: Discharge Instructions Date of Service Oct 21, 2016 Dates of Hospitalization Oct 20, 2016 at 08:42 Discharge Diagnosis Discharge Diagnosis Hypertensive emergency Type II diabetes Chronic kidney disease stage G4/IIIa Acute onset lower back pain Hypomagnesemia History of CAD Depression/anxiety/insomnia Diet Discharge Diet: No restrictions, Renal Diet Activity Discharge Activity: Limited until seen by PCP Call your provider Call your provider for: Fever or Chills, Shortness of breath, Bleeding, Chest pain, Vomitting, Excessive diarrhea, Weakness (unilateral) Patient Instructions Patient Instructions At your hospital stay we treated you for severely elevated blood pressure and back pain. As you stated this morning you are feeling better. We have discharged you on your home blood pressure medications. I have also sent you home on pain medications. The pain medication is called Dilaudid. You need to followup in my clinic (Andrew Polanco DO) at your next scheduled appointment which is on 10/23/2016 at 4:10pm. You will also need an appointment scheduled with Dr. Ryan of nephrology concerning your kidneys and high blood pressure within 4 weeks. If you have any worsening symptoms such as dizziness, shortness of breath, chest pain or pressure, nausea, vomiting, headache, visual changes then you need to go to the emergency department immediately. We also recommend that you try pilates. You can use youtube to watch these. Type in Pilates and Gloria Stapleton. Pilates will help you build muscle which will help you with the pain. Follow-up Provider: Andrew Polanco DO Follow-up with PCP in: 1 week Provider: Tai Ryan DO Follow-up in: 4 weeks Elizabeth Max DO 10/21/16 1219: Discharge Instructions Patient Instructions Patient Instructions Darwin trejo Attending's Statement The patient was seen and examined together with Dr. Polanco on 10/21/16 and I have added additional information to the note above. Andrew Polanco DO Oct 21, 2016 10:28 Elizabeth Max DO Oct 21, 2016 12:19
--- NOTE | 2016-10-21 10:53 | PCM.DC.MED ---
Discharge Summary Date of Service Oct 21, 2016 Dates of Hospitalization Date of Hospital Admission Oct 20, 2016 at 08:42 Date of Discharge: Oct 21, 2016 Providers: Admitting Physician: Nacho Archibald DO Primary [facility] Phys[facility] Residency Attending Physician: Nacho Archibald DO Diagnosis at Time of Discharge Diagnosis at Time of Discharge Hypertensive emergency Type II diabetes Chronic kidney disease stage G4/IIIa Acute onset lower back pain Hypomagnesemia History of CAD Depression/anxiety/insomnia Procedures XRay, CTs & MRIs Chest x-ray No acute disease Dictated by: Don Ngo M.D. on 10/20/2016 at 8:[address] No acute intracranial disease process. Dictated by: Rose Rangel MD, PhD on 10/20/2016 at 10:45 Lumbar spine MRI Multilevel mild disc degeneration and facet arthropathy. No high-grade canal stenosis. Multiple, bilateral mild to moderate foraminal stenoses (most pronounced at L2- L3 and L3-L4 left) as detailed above by spinal level. Dictated by: Don Ngo M.D. on 10/20/2016 at 13:27 Brief History This is a 46-year-old male with a history of CAD who underwent PCI of the RCA without stent in July of 2014, type II diabetes, hypertension, CKD stage G4/3A , and history of hepatitis C and pancreatitis who presented to the ED due to severe back pain that began the morning of admit. The pain began while he was watching television. Patient stated that the pain was sharp across his lumbar region and was associated with burning sensation in the lower extremities bilaterally. The patient also complained of left upper extremity neuropathic pain on the left side of his cervical region. He reported no underlying history of neuropathy from diabetes and states that this is all new and acutely worse. He denied recent changes in his activity level and stated that he is not overly active to begin with. He denied bowel or bladder incontinence. In the ED the patient's blood pressure was 229/134 and the patient was initially treated with metoprolol 3, nitroglycerine, and hydralazine without effect. Dr. Ryan from nephrology was consulted and started lisinopril, chlorothiazide, and Dilaudid 2, which brought the patient's blood pressure down into the 150s. Patient also received aspirin and Plavix. At home the patient is taking chlorthalidone 25 mg, clonidine 0.3 mg patch, hydralazine 100 mg, lisinopril 20 mg, and torsemide 20 mg. Patient has also been referred to [facility] due to refractory hypertension. Patient has also had a renal ultrasound with vascular assessment that was negative for renal artery stenosis. His deep fat fry cook is Dr. Ryan Hospital Course This is a 46-year-old male who presents with new onset neuropathies in the bilateral lower extremity and left upper extremity with acute onset of lumbar back pain. In the ER he was found to have systolic blood pressure > 220 and was complaining of a headache. Patient was treated with multiple medications to decrease his pressure. He was continued on his home blood pressure medications. On the morning of the day of discharge he was stable and stated he is feeling well. His blood pressure averaged in the 150's/90's. Discharge blood pressure 129/81. Hypertensive emergency; present admission; resolving -Patient has very difficult to treat hypertension with home medications including: chlorthalidone 25 mg, clonidine 0.3 mg patch, hydralazine 100 mg, lisinopril 20 mg, diltiazem 120 mg and torsemide 20 mg -Patient is allergic to beta blockers and has advanced kidney disease which complicates his course. -Restarted all home blood pressure medications and patient has responded well. Type II diabetes; well-controlled; ongoing -Patient's recent A1c was 6.3 -A1c pending at discharge and will be followed up on as an outpatient. -Discharge on patient's home insulin regimen. Chronic kidney disease stage G4/IIIa with decreased GFR and mild AG Acidosis; present admission; stable -Patient to followup with Dr. Ryan of nephrology in 2-4 weeks. Acute onset lower back pain; present admission; controlled -Patient presented with acute onset cervical and lumbar back pain with what sounded like radiculopathy; no incontinence reported or paresthesias in the saddle region -On exam patient has noticeable bilateral spasms in the lumbar region as well as left-sided spasm of the trapezius -MRI of the lumbar region showed multilevel disc degeneration with mild to moderate foraminal stenosis -Patient has multiple allergies to pain medications. He will be sent home with small prescription of Dilaudid. -OMT was performed in hospital with good relief of pain and patient should continue with this as outpatient. -Consider Gabapentin as outpatient. Hypomagnesemia; present admission; ongoing -Magnesium replaced before discharge. History of CAD; present admission; ongoing -Continue aspirin and plavix as outpatient. Depression/anxiety/insomnia; present medicine; stable -Continue sertraline and trazodone for sleep as outpatient. Exam Vital Signs (Last) Date Time Temp Pulse Resp B/P Pulse Ox O2 Delivery O2 Flow Rate FiO2 10/21/16 10:14 73 10/21/16 08:32 36.3 18 172/110 98 Room Air Exam General: Patient awake and alert and oriented, no acute distress HEENT: PERRLA, EOMI, mucous membranes moist, no JVD, neck supple, no sinus tenderness on percussion Lymph: No lymphadenopathy Cardiac: Regular rate and rhythm, no murmurs, no rubs, no gallops; Respiratory: CTA bilaterally no wheezes Abdomen: Obese, soft, nondistended, positive bowel sounds Osteopathic: Tenderness palpated on the spinous process T12 through S1. Neuro: Grossly intact throughout Extremity: Trace edema in the lower extremities bilaterally, strength 5 out of 5. Psych: Appropriate mood and affect Test 10/20/16 03:45 10/20/16 06:51 10/20/16 08:20 10/21/16 08:00 Neutrophils (%) (Auto) 54.4% (40-74) Lymphocytes (%) (Auto) 36.7% (14-46) Monocytes (%) (Auto) 6.6% (4-12) Eosinophils (%) (Auto) 1.6% (0-5) Basophils (%) (Auto) 0.5% (0-3) Total Creatine Kinase 248U/L (21-232) Troponin T < 0.010ug/L (0.0-0.011) Thyroid Stimulating Hormone (TSH) 3.280uIU/mL (0.450-4.500) Urine Color Straw (YELLOW) Urine Appearance Hazy (CLEAR,HAZY) Urine pH 5.5 (5.0-8.0) Urine Specific [place] 1.015 (1.003-1.035) Urine Protein 100mg/dL (NEG,TRACE) Urine Glucose (UA) 100mg/dL (NEGATIVE) Urine Ketones Negativemg/dL (NEGATIVE) Urine Occult Blood Negative (NEGATIVE) Urine Nitrite Negative (NEGATIVE) Urine Bilirubin Negative (NEGATIVE) Urine Urobilinogen Normalmg/dL (NORMAL) Urine Leukocyte Esterase Negative (NEGATIVE) Urine RBC 0-2/hpf (0-2) Urine WBC 0-5/hpf (0-5) Urine Epithelial Cells Occasional/hpf (NONE-MOD) Urine Crystals None seen (NONE SEEN) Urine Bacteria None/hpf (NONE-FEW) Urine Hyaline Casts None/lpf (NONE) Urine Granular Casts None seen (NONE SEEN) Urine Waxy Casts None seen (NONE SEEN) Urine Red Blood Cell Casts None seen (NONE SEEN) Urine White Blood Cell Casts None seen (NONE SEEN) Urine Mucus Present (None Seen) Urine Trichomonas None seen (NONE SEEN) Urine Yeast None (NONE SEEN) Urinalysis Comment None Urine Culture Reflexed Not indicated Urine Random Creatinine 58mg/dL (22-328) Urine Random Total Protein 88mg/dL (0-15) Urine Protein/Creatinine Ratio 1.52 (0-200) Hold Urine Received (Received) Test 10/21/16 08:34 White Blood Count 5.1th/mm3 (3.8-10.1) Red Blood Count 4.23mil/mm3 (4.40-5.80) Hemoglobin 12.5g/dL (13.8-17.2) Hematocrit 36.2% (41.0-50.0) Mean Corpuscular Volume 85.6fL (81-100) Mean Corpuscular Hemoglobin 29.6pg (27.0-35.0) Mean Corpuscular Hemoglobin Concent 34.5% (32.0-37.0) Red Cell Distribution Width 13.3% (12.3-15.4) Platelet Count 136bil/L (150-400) Sodium Level 139mEq/L (134-144) Potassium Level 5.5mEq/L (3.5-5.2) Chloride Level 104mEq/L (97-108) Carbon Dioxide Level 21mmol/L (18-29) Blood Urea Nitrogen 41mg/dL (6-24) Creatinine 2.51mg/dL (0.76-1.27) Estimat Glomerular Filtration Rate 30mL/min (>59) Glucose Level 211mg/dL (60-99) Calcium Level 9.3mg/dL (8.5-10.1) Magnesium Level 1.6mg/dL (1.6-2.6) Total Bilirubin 0.2mg/dL (0.0-1.2) Aspartate Amino Transf (AST/SGOT) 12U/L (0-50) Alanine Aminotransferase (ALT/SGPT) 12U/L (0-44) Alkaline Phosphatase 50U/L (25-150) Total Protein 6.5g/dL (6.4-8.4) Albumin 3.9g/dL (3.4-5.0) Discharge Medications Discharge Medications Aspirin (Aspirin) 81 Mg Tablet 81 MG PO DAILY (Reported) Cetirizine HCl (Zyrtec) 10 Mg Capsule 10 MG PO HS (Reported) Chlorthalidone (Chlorthalidone) 25 Mg Tablet 25 MG PO DAILY Prescribed by: ANDREW POLANCO DO Clonidine 0.3 mg/day Patch (Catapres TTS-3) 1 Each Patch 1 PATCH TOPICAL Q7D Prescribed by: LION MUNIZ MD Clopidogrel Bisulfate (Plavix) 75 Mg Tablet 75 MG PO DAILY Prescribed by: TRISTIN FORD MD Duloxetine (Duloxetine) 60 Mg Capsule.dr 90 MG PO DAILY (Reported) Gemfibrozil (Lopid) 600 Mg Tablet 600 MG PO BIDAC Prescribed by: TRISTIN FORD MD Lisinopril (Lisinopril) 20 Mg Tablet 20 MG PO DAILY Prescribed by: LION MUNIZ MD Sodium Bicarbonate (Sodium Bicarbonate) 650 Mg Tablet 650 MG PO DAILY (Reported ) Torsemide (Torsemide) 20 Mg Tablet 20 MG PO DAILY (Reported) As needed Acetaminophen/Codeine 300-30mg (Tylenol/Codeine #3) 1 Each Tablet 1 TABLET PO q 12 PRN PRN Pain (Reported) Hydromorphone (Dilaudid) 2 Mg Tablet 2 MG PO Q6H PRN PRN For Pain Prescribed by: ANDREW POLANCO DO Insulin Glargine (Lantus U100 Solostar Insulin Pen) 100 Unit/1 Ml Insuln.pen 10 UNIT SUBQ HS PRN PRN Blood Sugar above 80 (Reported) Insulin Regular, Human (HUMulin-R U100 Insulin Vial) 100 Unit/1 Ml Vial 15 UNITS SUBQ 2-3X/day PRN PRN If blood sugar above 200 (Reported) Nitroglycerin SL (Nitrostat) 0.4 Mg Tab.subl 0.4 MG SL Q5MIN PRN PRN For Chest Pain Prescribed by: COLIN RAMIREZ MD Trazodone (Trazodone) 50 Mg Tablet 50 MG PO HS PRN PRN prn (Reported) Followup Plan Discharge Diet: No restrictions, Renal Diet Discharge Activity: Limited until seen by PCP Patient Instructions At your hospital stay we treated you for severely elevated blood pressure and back pain. As you stated this morning you are feeling better. We have discharged you on your home blood pressure medications. I have also sent you home on pain medications. The pain medication is called Dilaudid. You need to followup in my clinic (Andrew Polanco DO) at your next scheduled appointment which is on 10/23/2016 at 4:10pm. You will also need an appointment scheduled with Dr. Ryan of nephrology concerning your kidneys and high blood pressure within 4 weeks. If you have any worsening symptoms such as dizziness, shortness of breath, chest pain or pressure, nausea, vomiting, headache, visual changes then you need to go to the emergency department immediately. We also recommend that you try pilates. You can use youtube to watch these. Type in Pilates and Gloria Daya. Pilates will help you build muscle which will help you with the pain. Follow-up Provider: Andrew Polanco DO Follow-up with PCP in: 1 week Provider: Tai Ryan DO Follow-up in: 4 weeks Time spent Greater than 35 minutes Attending Statement The patient was seen and examined together with Dr. Polanco on 10/21/16 and I agree with the history, exam and plan as outlined in the note above. copies to: Tai Ryan DO; Jeramie Park MD; Andrew Polanco Christopher DO Oct 21, 2016 10:53 Elizabeth Max DO Oct 21, 2016 16:35
--- NOTE | 2016-10-21 11:19 | PCM.PNNEPH ---
Joel Corona DO 10/21/16 1119: Subjective Date of Service Oct 21, 2016 Subjective Patient is a 46yom with MHx significant for DMII w/ neuropathy, HTN, CKD stage 4 and RACHEL presented for acute lower back pain admitted for hypertensive emergency. Nephrology was consulted for evaluation and treatment of HTN. No new complaints today. Denies any headaches, dizziness, unilateral weaknesses No SOB, CP, palpitation, or lightheadedness. Vitals blood pressure 172/110, HR 65, I's and O's 2.3/1 L. Electrolytes significant for potassium 5.5, sodium 139, chloride 104, bicarbonate 21. BUN 41, creatinine 2.[address] brain unremarkable for any acute pathologies 10/20/2016 MRI of the lower back showing high-level mild degeneration and facet arthropathy , and significant mild to moderate foraminal stenosis. 10/20/2016 Exam Vital Signs Vital Sign - Last Date Time Temp Pulse Resp B/P Pulse Ox O2 Delivery O2 Flow Rate FiO2 10/21/16 10:14 73 10/21/16 08:32 36.3 18 172/110 98 Room Air Intake and Output 10/20/16 10/20/16 10/21/16 Cumulative From/Thru 15:00 23:00 07:00 10/20/16 03:20 - 10/21/16 06:33 Intake Total 1357 ml 1817 ml 4174 ml Output Total 1000 ml 800 ml 1800 ml Balance 357 ml 1017 ml 2374 ml Intake Oral 1357 ml 1817 ml 3174 ml IV Total 1000 ml Output Urine Total 1000 ml 800 ml 1800 ml Exam General: No acute distress, appropriately interactive HEENT: Normocephalic, atraumatic. PERRLA, EOMI, Anicteric sclerae, moist conjunctivae. Neck: No JVD, No bruits. No lymphadenopathy or thyromegaly. Cardiovascular: Regular rate and rhythm with no murmurs, rubs, or gallops appreciated Pulmonary: b/l air sound with no crackles, wheezes, or rhonchi. no use of accessory muscles. Abdomen: +Bowel sound, Soft, nontender, nondistended. Extremities: No clubbing or cyanosis, no lymphedema, no b/l lower leg edema Skin: Normal temperature, turgor, and texture; no rash. No visualized skin ulcer. Neurological: CN II-VII grossly intact, moving equally on all 4 extremities Psychiatric: Normal mood and affect. AOx3 Lab and Diagnostics Result Diagram: 10/21/16 0834 10/21/16 08 X-Rays, CTs and MRIs Chest x-ray No acute disease Dictated by: Don Ngo M.D. on 10/20/2016 at 8:[address] No acute intracranial disease process. Dictated by: Rose Rangel MD, PhD on 10/20/2016 at 10:45 Lumbar spine MRI Multilevel mild disc degeneration and facet arthropathy. No high-grade canal stenosis. Multiple, bilateral mild to moderate foraminal stenoses (most pronounced at L2- L3 and L3-L4 left) as detailed above by spinal level. Dictated by: Don Ngo M.D. on 10/20/2016 at 13:27 Plan Impression Patient is a 46yom with MHx significant for DMII w/ neuropathy, HTN, CKD stage 4 and RACHEL presented for acute lower back pain admitted for hypertensive emergency. Nephrology was consulted for evaluation and treatment of HTN. HTN likely 2nd to uncontrolled back pain, insomnia. 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 He has been compliance to his antihypertensive medications which includes: chlorthalidone 25mg daily, hydralazine 100mg BID, clonidine patch 0.3 mg/24h, lisinopril 20mg daily, and torsemide 20mg daily. Patient cannot take beta-blockade 2nd to significant bradycardia. Diet has not changed. BP improved with pain control. MRI lower back showed mult mild-mod foraminal stenosis and disc degenerations. CT-head unremarkable for any acute pathologies. A contributing factor to HTN is non-compliance to CPAP. Patient was diagnosed with RACHEL and was given CPAP. However, stopped using CPAP >1wks. he reports "cant find it". Problem List # Back pain # Hypertensive emergency (resolved) # CKD stage 4, baseline Cr 2.5 # Insulin dependent DM II Plan: # Resume home antihypertensives meds as listed above # Adequate pain control per primary care # Encourage adherence to CPAP # Keep Nephrology appt with Dr. Duran in . Tai Ryan DO 10/21/16 1336: Exam Lab and Diagnostics Result Diagram: 10/21/16 0834 10/21/16 0834 Plan Plan: Pt. seen and examined with Dr. Corona, discussed with patient and . I would like to add torsemide 20mg qd and see him at hisi f/u appointment in October. He also needs a NS referal for his back. Joel Corona DO Oct 21, 2016 11:19 Tai Ryan DO Oct 21, 2016 13:36
[2016-10-21 11:41] VITALS: BP 129/81; PULSE 82; RESP 18; O2SAT 96
[2016-10-21] MEDS ORDERED: HYDR2TAB27 PO (13:46)
[2016-10-21] MEDS ORDERED: HYG25 PO (13:46)
--- NOTE | 2016-10-21 15:15 | NUR ---
discharge education pt educated about anti-hypertensive medications, CPAP use, low NA+ diet. Pt also encouraged to seek pilates and yoga videos to help back pain. Pt aware of follow up appointments and verbalizes understanding of his medication. Addendum: 10/21/16 at 1600 by SANJIV ARREGUIN RN 1600 PIV removed and pt walked out by Eliza Aldrich.
--- NOTE | 2016-10-21 16:56 | NUR ---
Social Work Note - Discharge. Guy Nguyen was able to d/c home today - family to provide transportation. Pt confirmed outpt follow up with RN and denied any other needs. FRANCISCO George
== END 2016-10-21 15:59 | disposition home or self-care (01) ==
LOC: SED 03:15 → PCC 08:42
PROVIDERS: ADMIT Family Medicine; ATTEND Family Medicine
DX: I12.9 Hypertensive chronic kidney disease with stage 1 through stage 4 chronic kidney disease, or unspecified chronic kidney disease (principal); E11.42 Type 2 diabetes mellitus with diabetic polyneuropathy; N18.4 Chronic kidney disease, stage 4 (severe); M54.5 Low back pain; E83.42 Hypomagnesemia; I25.10 Atherosclerotic heart disease of native coronary artery without angina pectoris; F41.8 Other specified anxiety disorders; G47.00 Insomnia, unspecified; B19.20 Unspecified viral hepatitis C without hepatic coma; I25.2 Old myocardial infarction; G47.33 Obstructive sleep apnea (adult) (pediatric); E78.5 Hyperlipidemia, unspecified; K85.90 Acute pancreatitis without necrosis or infection, unspecified; Z87.891 Personal history of nicotine dependence; Z95.5 Presence of coronary angioplasty implant and graft; Z79.02 Long term (current) use of antithrombotics/antiplatelets; Z79.82 Long term (current) use of aspirin; Z79.4 Long term (current) use of insulin
CPT/HCPCS: 36415; 70450; 71010; 72148; 80053; 81000; 82550; 82570; 83036; 83735; 84156; 84443; 84484; 85025; 85027; 93005; 96361; 96374; 96375; 96376; 99285; G0378; J1170; J1815; J2405; J3475; J7030

== ENCOUNTER 2016-12-01 10:53 | Observation (INO) | payer OTHER ==
[2016-12-01] VITALS (11 sets, daily range): BP systolic 138–216; BP diastolic 83–124; PULSE 65–76; RESP 14–20; O2SAT 94–98
[~2016-12-01] VITALS: Ht 180.3 cm; Wt 100.5 kg
[~2016-12-01 10:53] MED LIST changes: +ACET1TAB12 PO; -DILT120C83 PO; +DULO60CA61 PO; -HYDR-3940 PO; +HYDR2TAB27 PO; +HYG25 PO; -LIP40 PO; -SERT100T PO; +SODI650T PO; +TORS20TA3 PO
--- NOTE | 2016-12-01 11:06 | ED.REPORT ---
HPI-Chest Pain 40 and Over Date of Service Dec 01, 2016 ED Provider: Dr. Pierson Pt is a 46 year old male with a hx of chronic neck and back pain, CAD, HTN, DM and hyperlipidemia presenting to the ED complaining of chest pain and vomiting. He states that he has had nausea, vomiting, pain in his back and right neck ( chronic), intermittent chest pain, fatigue (onset this morning), headache ( onset yesterday), SOB, and chills. He has a hx of a heart attack in July 2014 and has 3 stents. Denies numbness or weakness, vision changes, fever. His last echo was 1 year ago and he was admitted in October 2016 for high blood pressure. During his admission on 10/20 pt had complained of a headache at that time and had a normal CT. Nursing Notes Stated Complaint: CHEST PAIN/VOMITING/ACHING Chief Complaint: Chest Pain Nursing Notes Reviewed: Yes Allergies: Coded Allergies: Beta-Blockers (Beta-Adrenergic Bloc (Verified Allergy, Severe, "see lights ", 12/01/16) Penicillins (Verified Allergy, Severe, rashes, 12/01/16) celecoxib (Verified Allergy, Severe, rashes, 12/01/16) TAKING ASPIRIN AT HOME hydrocodone bitartrate (Verified Allergy, Severe, rash.MS KELSEY, 12/01/16) agitation zolpidem tartrate (Verified Allergy, Severe, Agitation, 12/01/16) TAPE (Verified Allergy, Intermediate, Rash,Itching,, 12/01/16) oxycodone (Verified Allergy, Intermediate, RASH, ITCHING, 12/01/16) alprazolam (Verified Allergy, Unknown, Hallucinations, 12/01/16) ibuprofen (Verified Allergy, Unknown, Kidney problems, 12/01/16) TAKING ASPIRIN AT HOME Scheduled Aspirin (Aspirin) 81 Mg Tablet 81 MG PO DAILY Cetirizine HCl (Zyrtec) 10 Mg Capsule 10 MG PO HS Chlorthalidone (Chlorthalidone) 25 Mg Tablet 25 MG PO DAILY Clonidine 0.3 mg/day Patch (Catapres TTS-3) 1 Each Patch 1 PATCH TOPICAL Q7D Clopidogrel Bisulfate (Plavix) 75 Mg Tablet 75 MG PO DAILY Duloxetine (Duloxetine) 60 Mg Capsule.dr 90 MG PO DAILY Gemfibrozil (Lopid) 600 Mg Tablet 600 MG PO BIDAC Lisinopril (Lisinopril) 20 Mg Tablet 20 MG PO DAILY Sodium Bicarbonate (Sodium Bicarbonate) 650 Mg Tablet 650 MG PO DAILY Torsemide (Torsemide) 20 Mg Tablet 20 MG PO DAILY Scheduled PRN Acetaminophen/Codeine 300-30mg (Tylenol/Codeine #3) 1 Each Tablet 1 TABLET PO q 12 PRN PRN Pain Hydromorphone (Dilaudid) 2 Mg Tablet 2 MG PO Q6H PRN PRN For Pain Insulin Glargine (Lantus U100 Solostar Insulin Pen) 100 Unit/1 Ml Insuln.pen 10 UNIT SUBQ HS PRN PRN Blood Sugar above 80 Insulin Regular, Human (HUMulin-R U100 Insulin Vial) 100 Unit/1 Ml Vial 15 UNITS SUBQ 2-3X/day PRN PRN If blood sugar above 200 Nitroglycerin SL (Nitrostat) 0.4 Mg Tab.subl 0.4 MG SL Q5MIN PRN PRN For Chest Pain Trazodone (Trazodone) 50 Mg Tablet 50 MG PO HS PRN PRN prn General Time Seen by MD: 11:05 Chief Complaint Chest pain, Vomiting Hx Obtained From: Patient Arrived By: Walk-in Sudden in Onset?: Yes Onset Occurred: Yesterday Symptom Duration: Since onset Location: : Back: Epigastric: Neck Quality: Painful Severity: Current: Moderate Severity: Maximum: Moderate Recent Healthcare: No recent doctor visit, No recent hospitalization Similar Sx Previous: No Past Medical History Past Medical History [place] CAD Hepatitis C, chronic Kidney disease (chronic) with baseline creatinine 1.4 Pancreatitis History of cellulitis ( admit Jan 08-2015, I&D required for right middle finger) Obstructive sleep apnea Reports: Coronary artery disease, Diabetes mellitus, Hyperlipidemia, Hypertension Past Surgical History Multiple orthopedic surgeries, including four shoulder surgeries, four hand surgeries (including carpal tunnel release bilaterally), left knee surgery, cholecystectomy, tonsillectomy. Two Stents LAD 07/05/14, 3x cardiac stents total I&D of right middle finger on 01/10/2016 Family History Reports: Coronary artery disease, Hypertension Smoking History Former Smoker Social History Alcohol Use: "Social" Drug Use: Denies drug use Other Social History: Smokeless tobacco, Good social support, , Local resident Ambulatory Status Independent Review of Systems Constitutional: Reports: Chills, Fatigue, Denies: Fever Respiratory: Reports: Shortness of breath Cardiovascular: Reports: Chest pain GI: Reports: Abdominal pain, Nausea, Vomiting Musculoskeletal: Reports: Back pain, Neck pain Neurologic: Reports: Headache, Denies: Focal weakness, Numbness, Vision change Complete sys rev & neg: except as marked. Physical Exam Initial Vital Signs Vital Signs (First) Date Time Temp Pulse Resp B/P Pulse Ox O2 Delivery O2 Flow Rate FiO2 12/01/16 11:04 36.8 75 16 216/118 98 Room Air Initial VS: Reviewed Extremities: Vascular intact, Neuro intact, No swelling, No tenderness Skin: Warm, Dry, No cyanosis Psychiatric: Mood/affect normal, Behavior normal, Normal thought content General/Constitutional: Awake, Alert, No acute distress, Well appearing Respiratory / Chest: Breath sounds NL, Breath sounds = bilat, No respiratory distress, No rales, No rhonchi, No wheezing, No stridor, No chest tenderness Cardiovascular: Heart rate NL, Regular rhythm Abdomen: Atraumatic, Soft, Non-tender Neck: Atraumatic, Supple, Full range of motion, No adenopathy Neurologic: Oriented X3, Speech NL, No motor deficits, No sensory deficits, CN II - XII intact Head / Eyes: Atraumatic, Normocephalic, PERRL, EOMI Slight light sensitivity Interpretation & Diagnostics Lab Results Interpretation Result Diagram: 12/01/16 1110 12/01/16 1110 Test 12/01/16 11:10 White Blood Count 5.1th/mm3 (3.8-10.1) Red Blood Count 4.77mil/mm3 (4.40-5.80) Hemoglobin 14.4g/dL (13.8-17.2) Hematocrit 40.0% (41.0-50.0) Mean Corpuscular Volume 83.9fL (81-100) Mean Corpuscular Hemoglobin 30.2pg (27.0-35.0) Mean Corpuscular Hemoglobin Concent 36.0% (32.0-37.0) Red Cell Distribution Width 13.3% (12.3-15.4) Platelet Count 150bil/L (150-400) Neutrophils (%) (Auto) 60.8% (40-74) Lymphocytes (%) (Auto) 30.3% (14-46) Monocytes (%) (Auto) 6.5% (4-12) Eosinophils (%) (Auto) 1.8% (0-5) Basophils (%) (Auto) 0.4% (0-3) Prothrombin Time 10.8sec (8.1-12.5) Prothromb Time International Ratio 1.01ratio Sodium Level 136mEq/L (134-144) Potassium Level 4.5mEq/L (3.5-5.2) Chloride Level 103mEq/L (97-108) Carbon Dioxide Level 17mmol/L (18-29) Blood Urea Nitrogen 38mg/dL (6-24) Creatinine 2.48mg/dL (0.76-1.27) Estimat Glomerular Filtration Rate 30mL/min (>59) Glucose Level 210mg/dL (60-99) Calcium Level 9.3mg/dL (8.5-10.1) Magnesium Level 1.5mg/dL (1.6-2.6) Total Bilirubin 0.2mg/dL (0.0-1.2) Aspartate Amino Transf (AST/SGOT) 14U/L (0-50) Alanine Aminotransferase (ALT/SGPT) 15U/L (0-44) Alkaline Phosphatase 62U/L (25-150) Troponin T 0.034ug/L (0.0-0.011) Pro-B-Type Natriuretic Peptide 452.7pg/mL (0-121) Total Protein 7.5g/dL (6.4-8.4) Albumin 4.3g/dL (3.4-5.0) Hold [place] Top Tube Received (Received) ECG Interpretation ECG Interpretation: Normal intervals. [place] Q waves inferiorally. No acute ST or T wave changes. Simialr to EKG dated 10/20/16 Time: 11:45 Interpreted by: ED physician Normal ECG Interpretation: Normal rate (72), Normal sinus rhythm X-Ray Chest Interpretation Chest Xray Interpretation: IMPRESSION: No acute cardiopulmonary disease. Dictated by: Lauri Rodriguez M.D. on 12/01/2016 at 11:10 View: Portable, 1 view Interpretation / Wet Read by: Interpret - Radiologist CT Head Interpretation IMPRESSION: No acute intracranial process. Dictated by: Don Ngo M.D. on 12/01/2016 at 12:31 Re-Eval/Medical Decision Med Decision/Clinical Course The patient presents with multiple complaints however seems to be new is that he had chest pain yesterday and intermittent today. Yesterday he had shortness of breath. The patient also states he does not have headaches however he did have headache on his last admission had a CT at that time. The patient denies any new symptoms in regard to his neck and back pain therefore aortic dissection is unlikely. The patient has been without his clonidine for 4 days which would explain his hypertension and may be the cause of his chest pain. The patient's troponin is in the upper limits of indeterminant he will be admitted for further evaluation. The patient states he has not had a recent stress test within the last year. Time of Eval: 13:13 Patient Status: Condition improved Re-Evaluation/Progress Note: Discussed plan for admission. Pt understands and agrees with plan. Consultation : Referral / Consult Name: Vipul Fernandez MD Consulted With: Hospitalist Call Returned at: 13:13 Boat Driver: Will see patient, Agrees with plan, Accepts admit Counseled Regarding: Diagnosis, Lab results, Need for admission Discharge & Departure Primary Impression: Chest pain Chest pain type: unspecified Qualified Code: R07.9 - Chest pain, unspecified Additional Impressions: Renal insufficiency Malignant hypertension Chronic back pain Back pain location: low back pain Back pain laterality: midline Sciatica presence: without sciatica Qualified Code: M54.5 - Low back pain Disposition: ADMITTED TO HOSPITAL Discharge Condition All VS Reviewed: Yes Condition: Improved Referrals: [facility] (PCP) Yusufibarun Attestation Portions of this note were transcribed by Birdie Patel. I, Dr. Pierson personally performed the history, physical exam and medical decision-making; I reviewed and confirmed the accuracy of the information in the transcribed note. Signed by : Matt Jones, 12/01/2016. copies to: [facility] Adelina Pierson MD Dec 01, 2016 11:06 BIRDIE PATEL Dec 01, 2016 11:26
[2016-12-01] MEDS ORDERED: HYDROmorphone 0.5 mg/0.5 mL iSecure Syringe IVPUSH ONE (11:25)
[2016-12-01] MEDS ORDERED: cloNIDine 0.1 mg Tablet PO ONE ×2 (11:25→15:35)
[2016-12-01 11:33] LABS: BASOPHILS % (AUTO) 0.4 % (0-3); EOSINOPHILS % (AUTO) 1.8 % (0-5); MONOCYTES % (AUTO) 6.5 % (4-12); Mean Corpuscular Hemoglobin 30.2 pg (27.0-35.0); Mean Corpuscular Volume 83.9 fL (81-100); NEUTROPHILS % (AUTO) 60.8 % (40-74); Platelet Count 150 bil/L (150-400)
[2016-12-01] MEDS ORDERED: Ondansetron 2 mg/mL 2 mL Inj IVPUSH PRN ×2 (11:40→13:15)
[2016-12-01 11:48] LABS: INR 1.01 ratio
[2016-12-01 12:01] LABS: TROPONIN T 0.034 ug/L (0.0-0.011)
[2016-12-01 12:12] LABS: Magnesium 1.5 mg/dL (1.6-2.6)
--- NOTE | 2016-12-01 12:12 | DRSVH ---
PROCEDURE: X-RAY CHEST ONE VIEW, PORTABLE ([id number]) INDICATIONS: 46 year-old male with chest pain. TECHNIQUE: One view of the chest was acquired. COMPARISON: [facility], CR, XR CHEST 1VW (PORTABLE), 10/20/2016, 3:40. FINDINGS: Surgical changes and devices: None. Lungs and pleura: No pleural effusions or pneumothorax. Lungs are clear. Mediastinum: Mediastinal contours appear normal. Heart size is normal. Bones and chest wall: No suspicious bony lesions. Overlying soft tissues appear unremarkable. IMPRESSION: No acute cardiopulmonary disease. Dictated by: Lauri Rodriguez M.D. on 12/01/2016 at 11:10 Approved by: Lauri Rodrigeuz M.D. on 12/01/2016 at 11:11
[2016-12-01] MEDS ORDERED: Nitroglycerin 2% 1 Gm Ointment TOPICAL ONE (12:25)
--- NOTE | 2016-12-01 12:34 | DRSVH ---
PROCEDURE: CT BRAIN WITHOUT CONTRAST ([id number]) INDICATIONS: New headache TECHNIQUE: Noncontrast 4.5 mm thick angled axial sections acquired from the foramen magnum to the vertex, with c oronal reformats. COMPARISON: [facility], CT, CT BRAIN WO CON, 10/20/2016, 6:45. FINDINGS: Image quality: Excellent. CSF spaces: Basal cisterns are patent. No extra-axial fluid collections. Ventricles are normal in size and shape. Brain: No midline shift. No intracranial masses or hemorrhage. Sanchez-white matter interface is norm al. Skull and face: Calvarium and visualized facial bones are intact, without suspicious lesions. Sinuses: Visualized sinuses and mastoids are clear. IMPRESSION: No acute intracranial process. Dictated by: Don Ngo M.D. on 12/01/2016 at 12:31 Approved by: Don Ngo M.D. on 12/01/2016 at 12:32
[2016-12-01] MEDS ORDERED: Alum-Mag Hydrox-Simeth 30 mL Suspension PO PRN (13:15)
[2016-12-01] MEDS ORDERED: Polyethylene Glycol (PEG) 17 Gm Powder PO PRN (13:15)
[2016-12-01] MEDS ORDERED: Diltiazem 5 mg/mL 5 mL Inj IVPUSH ONE (15:35)
[2016-12-01] MEDS ORDERED: ProchlorPERazine 5 mg/mL 2 mL Inj IVPUSH PRN (15:35)
[2016-12-01] MEDS: HYDROmorphone 1 mg/mL Inj IVPUSH PRN ×2 (16:01→20:23)
[2016-12-01] MEDS: Sodium Chloride LOK Flush 10 mL Syringe IVFLUSH SCH (16:14)
--- NOTE | 2016-12-01 17:55 | PCM.HPMED ---
Subjective Date of Service Dec 01, 2016 Primary Provider: Admitting Physician: Vipul Fernandez MD Primary Care Physician: Alexx,[facility] Residency Attending Physician: Vipul Fernandez MD Chief Complaint: chest pain, nausea and vomiting, weakness and shortness of breath. History of Present Illness: Pt is a 46 year old male with a hx of chronic neck and back pain, CAD, HTN, DM and hyperlipidemia presenting to the ED complaining of chest pain and vomiting. He states that he has had nausea, vomiting, pain in his back and right neck ( chronic), intermittent chest pain, fatigue (onset this morning), headache ( onset yesterday), SOB, and chills. He has a hx of a heart attack in July 2014 and has 3 stents. Denies numbness or weakness, vision changes, fever. His last echo was 1 year ago and he was admitted in October 2016 for high blood pressure. During his admission on 10/20 pt had complained of a headache at that time and had a normal CT. Review of Systems: A comprehensive review of systems was conducted with the patient and found to be negative except as above in the History of Present Illness. Allergies Coded Allergies: Beta-Blockers (Beta-Adrenergic Bloc (Verified Allergy, Severe, "see lights ", 12/01/16) Penicillins (Verified Allergy, Severe, rashes, 12/01/16) celecoxib (Verified Allergy, Severe, rashes, 12/01/16) TAKING ASPIRIN AT HOME hydrocodone bitartrate (Verified Allergy, Severe, rash.MS COLE, 12/01/16) agitation zolpidem tartrate (Verified Allergy, Severe, Agitation, 12/01/16) TAPE (Verified Allergy, Intermediate, Rash,Itching,, 12/01/16) oxycodone (Verified Allergy, Intermediate, RASH, ITCHING, 12/01/16) alprazolam (Verified Allergy, Unknown, Hallucinations, 12/01/16) ibuprofen (Verified Allergy, Unknown, Kidney problems, 12/01/16) TAKING ASPIRIN AT HOME Home Medications Aspirin (Aspirin) 81 Mg Tablet 81 MG PO DAILY Cetirizine HCl (Zyrtec) 10 Mg Capsule 10 MG PO HS Chlorthalidone (Chlorthalidone) 25 Mg Tablet 25 MG PO DAILY Clonidine 0.3 mg/day Patch (Catapres TTS-3) 1 Each Patch 1 PATCH TOPICAL Q7D Clopidogrel Bisulfate (Plavix) 75 Mg Tablet 75 MG PO DAILY Duloxetine (Duloxetine) 60 Mg Capsule.dr 90 MG PO DAILY Gemfibrozil (Lopid) 600 Mg Tablet 600 MG PO BIDAC Lisinopril (Lisinopril) 20 Mg Tablet 20 MG PO DAILY Sodium Bicarbonate (Sodium Bicarbonate) 650 Mg Tablet 650 MG PO DAILY Torsemide (Torsemide) 20 Mg Tablet 20 MG PO DAILY Scheduled PRN Acetaminophen/Codeine 300-30mg (Tylenol/Codeine #3) 1 Each Tablet 1 TABLET PO q 12 PRN PRN Pain Hydromorphone (Dilaudid) 2 Mg Tablet 2 MG PO Q6H PRN PRN For Pain Insulin Glargine (Lantus U100 Solostar Insulin Pen) 100 Unit/1 Ml Insuln.pen 10 UNIT SUBQ HS PRN PRN Blood Sugar above 80 Insulin Regular, Human (HUMulin-R U100 Insulin Vial) 100 Unit/1 Ml Vial 15 UNITS SUBQ 2-3X/day PRN PRN If blood sugar above 200 Nitroglycerin SL (Nitrostat) 0.4 Mg Tab.subl 0.4 MG SL Q5MIN PRN PRN For Chest Pain Trazodone (Trazodone) 50 Mg Tablet 50 MG PO HS PRN PRN prn PMH DC CAD Hepatitis C, chronic Kidney disease (chronic) with baseline creatinine 1.4 Pancreatitis History of cellulitis ( admit Jan 08-2015, I&D required for right middle finger) Obstructive sleep apnea Reports: Coronary artery disease, Diabetes mellitus, Hyperlipidemia, Hypertension Surgical History Past Surgical History Multiple orthopedic surgeries, including four shoulder surgeries, four hand surgeries (including carpal tunnel release bilaterally), left knee surgery, cholecystectomy, tonsillectomy. Two Stents LAD 07/05/14, 3x cardiac stents total I&D of right middle finger on 01/10/2016 Family History Coronary artery disease, Hypertension Social History Hx Alcohol Use: Yes (in 20's) Hx Substance Use: Yes (in 20's) Hx Tobacco Use: No (39-[id number]-[id number] history quit in 2000) Smoking Status: Former Smoker Exam Vital Signs Vital Sign - Last Date Time Temp Pulse Resp B/P Pulse Ox O2 Delivery O2 Flow Rate FiO2 12/01/16 15:49 65 12/01/16 15:22 177/124 12/01/16 15:20 36.7 18 97 Room Air Exam General: No acute distress, well-developed, well-nourished, appropriately interactive HEENT: Normocephalic, atraumatic. External ears without defect. Pupils equal, round, and reactive to light and accommodation. Anicteric sclerae, moist conjunctivae, and no lid lag. Oropharynx free of erythema and cobble stoning with moist mucosa. Neck: Supple with full range of motion. No jugular venous distension. No bruits. No lymphadenopathy or thyromegaly. Cardiovascular: Regular rate and rhythm with no murmurs, rubs, or gallops appreciated Pulmonary: Clear to auscultation bilaterally with no crackles, wheezes, or rhonchi. Normal respiratory effort with no use of accessory muscles. Abdomen: Bowel tones present. Soft, nontender, nondistended. No hepatosplenomegaly or masses appreciated. Extremities: No clubbing, cyanosis, edema, or lymphadenopathy appreciated. Skin: Normal temperature, turgor, and texture; no rash, ulcers, or subcutaneous nodules appreciated. Neurological: Cranial nerves grossly intact. Normal muscle strength, tone, and bulk. Reflexes, coordination, and sensory function within normal limits. No known gait impairment. Psychiatric: Normal mood and affect. Alert and oriented to person, place, and time. Lab and Diagnostics Result Diagram: 12/01/16 1110 12/01/16 1110 X-Rays, CTs and MRIs CT BRAIN WITHOUT CONTRAST IMPRESSION: No acute intracranial process. Dictated by: Don Ngo M.D. on 12/01/2016 at 12:31 X-RAY CHEST ONE VIEW, PORTABLE IMPRESSION: No acute cardiopulmonary disease. Approved by: Lauri Rodriguez M.D. on 12/01/2016 at 11:11 Assessment & Plan Mr. Guy Nguyen Jr is a 46 year old gentleman with CAD x2 stents, CKD, presenting with vague chest pain, headache, nausea/vomiting and hypertension here for chest pain rule out. Acute Hypertensive Urgency, present on admission. Active. - Patient has similar symptoms as before, increased vomiting, malaise, weakness. - GOAL BP 160/80. - CT head as above. - Continue home antihypertensives. Lisinopril, chlorthalidone, clonidine patch 0.3. Torsemide. - PRN Diltiazem IV push PRN. - Continue symptomatic management for pain and nausea. Acute chest pain, present on admission. Active and improving. - Likely not cardiac, however his story of vague chest pain that resolves with rest along with his past of CAD x2 stents placed 07/16/14, and hypertension we are concerned this may be an NSTEMI. - Follow Tropes Q6H. First trope minor elevation. - EKG NSR with early repolarization, minor ST elevation in V2 unchanged from previous EKG.\\ - Nitro and Morphine for chest pain/pressure. - Continue ASA, Plavix. - On Tele. - Previous ECHO 02/15/16 - 60-65 %. Ascending aorta is mild-moderately enlarged 4.1 cm in 06/2015 it was 3.6 cm. - Previous Stress ECHO was normal 11/06/15. Chronic kidney disease, Stage IV, present on admission. Active. - As long as patient can tolerate PO will hold off on IV fluids. - Cr 2.48 currently near or at baseline, BUN 38. GFR 30. - Avoid nephrotoxic insults. Chronic or resolving conditions: Insulin using Diabetes mellitus - Home Lantus 10 U SQ HS - Regular insulin 15 U SQ 2-3x PRN. Hypertriglyceridemia - Continue home Gemfibrozil. - Not on a statin. Chronic Neck / Back pain. - Not on home pain pills. - Currently awaiting surgery. - Dilaudid 2 mg PO Q6H. Depression - Continue Duloxetine Insomnia - Continue home Trazodone. Acetaminophen for mild pain when necessary. Bowel regimen Senna and MiraLAX scheduled and PRN. Zofran when necessary for nausea and vomiting. SubQ heparin held for now. SCDs in place. High-risk medications:NONE. Patient Status: Patient is admitted under observation status with expected length of stay greater than 2 midnights due to severity of presenting symptoms, risk of adverse event, and complexity of treatment plan. I believe there is a chance this will change to Inpatient. Pain Evaluation: Adequate Pain Control Resuscitation Status: CPR: Attempt Resuscitation Time spent 70 minutes Attending Statement I interviewed and examined the patient at the time of admission. I agree with the assessment and plan as stated above. PANCHO JUAREZ DO Dec 01, 2016 16:41 Vipul Fernandez MD Dec 02, 2016 07:11
--- NOTE | 2016-12-01 19:09 | NUR ---
Arrived 1445 - Received report from Khadijah LEY in the ED. She stated he was being admitted for chest pain that started 11/30 as well as nausea, vomiting, back pain, neck pain, and hypertension (BP 216/118). 151 - He arrived from the ED to [facility] 2020 at this time. He was settled into the room. Assessment, H/P, allergies, and skin assessment completed. Unable to complete medication req due to time constraints. safety consultant notified. He was complaining of neck/back pain along with nausea. Was given IV Dilaudid and Zofran which decreased his pain from an 8/10 to a 5/10, took his nausea away, and allowed him to sleep. 155 - Notified Dr. Fernandez that his left arm blood pressure was 200/125, but that his right blood pressure was 177/105 upon arrival. He said to take his blood pressures on the left arm from now on. 1608 - Clarified some medication orders with Dr. Fernandez. He said to hold his by mouth catapress as he had received some in the ED about 4 hours prior. He said to give the catapress patch, however, and to give the IV Diltiazem to decrease his blood pressure. Care continues.
[2016-12-01] MEDS: Heparin 5,000 Unit/mL Inj SUBQ SCH (20:22)
[2016-12-01] MEDS ORDERED: Glucose 40% Oral Gel 15 Gm Tube PO PRN (23:00)
[2016-12-01] MEDS ORDERED: Dextrose 10% 250 ML IV PRN (23:10)
[2016-12-02] MEDS: Sodium Chloride LOK Flush 10 mL Syringe IVFLUSH SCH ×3 (01:23→17:49)
[2016-12-02 03:34] VITALS: BP 159/101; PULSE 72; RESP 15; O2SAT 96
[2016-12-02] MEDS ORDERED: Nitroglycerin 2% 1 Gm Ointment TOPICAL SCH (04:10)
[2016-12-02 05:45] VITALS: BP 134/90
--- NOTE | 2016-12-02 05:48 | NUR ---
Hypertension/Tele Patient continues to be hypertensive, SBP 150-170s. No PRN antihypertensives ordered. Page to night hospitalist; received order for one time dose of nitro paste. Nitro paste applied to patient per orders; BP gradually improved to 134/90. Tele: sinus rhythm with 1st degree block. Denies chest pain.
[2016-12-02 08:00] VITALS: BP 146/80; PULSE 68; RESP 14; O2SAT 96
[2016-12-02] MEDS ORDERED: DULoxetine 30 mg DR Capsule PO SCH ×2 (08:30→21:00)
[2016-12-02] MEDS: Heparin 5,000 Unit/mL Inj SUBQ SCH (08:44)
[2016-12-02] MEDS: Insulin LISPRO 300 Unit/3 mL Inj SUBQ SCH ×3 (08:58→17:41)
[2016-12-02] MEDS: HYDROmorphone 1 mg/mL Inj IVPUSH PRN ×3 (09:09→17:46)
[2016-12-02 09:27] LABS: TROPONIN T 0.031 ug/L (0.0-0.011)
[2016-12-02 11:12] VITALS: PULSE 76
[2016-12-02 16:09] VITALS: BP 165/109; PULSE 90; RESP 16; O2SAT 95
--- NOTE | 2016-12-02 16:13 | DRSVH ---
PROCEDURE: 1 DAY PHARMACOLOGICAL STRESS TEST Rest and pharmacological stress myocardial perfusion SPECT with gated imaging and ejection fraction RADIOPHARMACEUTICAL: 8.7 mCi Tc-99m tetrafosmin IV at rest and 28.6 mCi Tc-99m tetrafosmin IV at peak effect of pharmacological stress. A [id number] was performed. INDICATIONS: 46 year-old male with coronary artery disease, hypertension, diabetes, and hyperlipidemi a, presents with chest pain and vomiting. History of July 2014 myocardial infarct with LAD coronary artery stenting. TECHNIQUE: Radiopharmaceutical was injected at peak stress test, and also at rest. SPECT images wer e obtained. SPECT myocardial perfusion images were displayed in short axis, horizontal long axis, an d vertical long axis views. Gated images were reviewed using [employer] software. COMPARISON: [facility], [place], [place] CARDIAC STRESS TEST 2 DAY, 07/01/2015, 10:40. CARDIAC STRESS: Initially, an exercise stress test was performed, but was stopped due to hypertensive response up to 210/112. A pharmacologic stress test was subsequently performed under the supervision of an attending staff, using an infusion of Lexiscan. Hemodynamic data: There is normal blood pressure and heart rate response to pharmacologic stress. Symptoms: The patient denied anginal chest pain. Aminophylline: Not needed. EKG: There are T wave inversions in leads III, V5 and V6 during late recovery and after Lexiscan admi nistration. No ectopy. FINDINGS: Raw data: There is good myocardial uptake of radiotracer. No significant motion artifacts. Left ventricle function: Gated images demonstrate normal left ventricular wall thickening. No segme ntal wall motion abnormalities. No transient ischemic dilation;. Left ventricle resting end diastol ic volume is 115 mL. Left ventricle stress ejection fraction is 53%; normal range is above 45%. Myocardial perfusion: There is normal distribution of activity in the right and left ventricular aron cardium. No fixed or reversible perfusion defects. IMPRESSION: 1. Normal myocardial perfusion study for ischemia. 2. Upper normal left ventricle cavity size, without segmental wall motion abnormalities. Normal calcu lated left ventricle ejection fraction. 3. Hypertensive response to exercise stress testing, with expected hemodynamic response to subsequent pharmacologic stress testing. PQRS ATTESTATIONS: Measure 322 - Is this imaging test primarily performed on a low-risk surgery patient for preoperative evaluation within 30 days preceding their low-risk non-cardiac surgery? Low-risk surgery is defined as cardiac or myocardial infarction less than 1%, including (but not limited to) endoscopic pr ocedures, superficial procedures, cataract surgery, and excisional breast surgery: Answer: No Measure 323 - Is this imaging test performed primarily for the monitoring of an asymptomatic patient who had percutaneous coronary intervention on the visit date or within 2 years of the visit date? An swer: No Measure 324 - Is this imaging test performed primarily for the initial detection and risk assessment on an asymptomatic, low coronary heart disease patient? Low CHD risk definition = clinicians should consider the maximum number of available patient factors used to estimate risk based on [place] (A TP III criteria), typically age, gender, diabetes, smoking status, and use of blood pressure medicati on, and integrate age appropriate estimates for missing elements, such as LDL or standard blood press ure. Answer: No Dictated by: Reno Chapin M.D. on 12/02/2016 at 16:01 Approved by: Reno Chapin M.D. on 12/02/2016 at 16:11
--- NOTE | 2016-12-02 16:47 | NUR ---
Social Work: Initial Assessment / Discharge Data: Pt is a 46 y/o male admitted for nstemi, HTN, renal insufficiency. Pt's PCP is [facility]. Pt's insurance is [employer]. EMR reviewed. D/C orders are in. Pt discussed in multidisciplinary rounds. RESEARCH AIDE met with pt at bedside, role explained. 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 Pt is a dialysis pt. No d/c planning needs identified at this time. RESEARCH AIDE will continue to follow if needs arise. Assessment: Dialysis pt, independent at baseline, currently capable of self care. Plan: Pt will d/c home via POV today. No d/c planning needs identified at this time. RESEARCH AIDE will continue to follow if needs arise. MIRYAM Portillo Addendum: 12/02/16 at 1656 by VIKKI SHELLEY Amended: Links added.
--- NOTE | 2016-12-02 17:04 | PCM.DIMED ---
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 You may also discuss this problem at your family practice follow-up appointment. We recommend against using Dilaudid, codeine or other narcotic analgesics, because this may worsen your chronic pain disorder in the long run. Follow-up plan Please arrange referral to [facility] clinic, next available appointment. The patient will contact the [facility] family practice clinic for a post-hospitalization follow-up within 1 week. He needs a new provider as a previous patient of Dr. Polanco. Vipul Fernandez MD Dec 02, 2016 17:04
--- NOTE | 2016-12-02 17:15 | PCM.DC.MED ---
Discharge Summary Date of Service Dec 02, 2016 Dates of Hospitalization Date of Hospital Admission Dec 01, 2016 at 14:41 Date of Discharge: Dec 02, 2016 Providers: Admitting Physician: Vipul Fernandez MD Primary Care Physician: CHANDANA Coffey Residency Attending Physician: Vipul Fernandez MD Diagnosis at Time of Discharge Diagnosis at Time of Discharge Hypertensive urgency; Clonidine withdrawal rebound hypertension; Chest pain with abnormal nuclear cardiac perfusion scan; Chronic kidney disease stage IV; Chronic musculoskeletal pain; Diabetes mellitus type II Procedures XRay, CTs & MRIs CT BRAIN WITHOUT CONTRAST IMPRESSION: No acute intracranial process. Dictated by: Don Ngo M.D. on 12/01/2016 at 12:31 X-RAY CHEST ONE VIEW, PORTABLE IMPRESSION: No acute cardiopulmonary disease. Approved by: Lauri Rodriguez M.D. on 12/01/2016 at 11:11 Brief History Pt is a 46 year old male with a hx of chronic neck and back pain, CAD, HTN, DM and hyperlipidemia presenting to the ED complaining of chest pain and vomiting. He states that he has had nausea, vomiting, pain in his back and right neck ( chronic), intermittent chest pain, fatigue (onset this morning), headache ( onset yesterday), SOB, and chills. He has a hx of a heart attack in July 2014 and has 3 stents. Denies numbness or weakness, vision changes, fever. His last echo was 1 year ago and he was admitted in October 2016 for high blood pressure. During his admission on 10/20 pt had complained of a headache at that time and had a normal CT. Hospital Course Acute Hypertensive Urgency, present on admission. Active. - Symptoms worsened after he ran out of clonidine patch. Symptoms improved within one day of hospital observation and better blood pressure control. - Continue home antihypertensives. Lisinopril, chlorthalidone, clonidine patch 0.3. Torsemide. Acute chest pain, present on admission. Active and improving. Vague chest pain that resolves with rest along with his past of CAD x2 stents placed 07/16/14, and hypertension were concerned this may be an NSTEMI. No EKG changes. Troponin profile unremarkable in light of his CK D: 0.034, 0.027, 0.019, 0.031. Nuclear perfusion treadmill study was low risk. - Continue ASA, Plavix. - Previous ECHO 02/15/16 - 60-65 %. Ascending aorta is mild-moderately enlarged 4.1 cm in 06/2015 it was 3.6 cm. - Previous Stress ECHO was normal 11/06/15. Chronic kidney disease, Stage IV, present on admission. Active. Creatinine 2.48 , 2.80, mildly elevated versus recent baseline Continue follow-up with nephrology Chronic Neck / Back pain. He seems to have several short-term no refill opioid prescriptions, likely from urgent care or filling providers. High risk for iatrogenic opioid dependence for chronic musculoskeletal pain. - Referred to us or see OMT clinic as soon as possible for non-pharmacological management of chronic spinal pain. - Opioid Analgesic requested, we advise patient that this is likely to render his back pain less treatable in the future. Insulin using Diabetes mellitus, adequate glucose control while inpatient. - Home Lantus 10 U SQ HS - Regular insulin 15 U SQ 2-3x PRN. Hypertriglyceridemia - Continue home Gemfibrozil. - Not on a statin. Depression - Continue Duloxetine Insomnia - Continue home Trazodone. Exam Vital Signs (Last) Date Time Temp Pulse Resp B/P Pulse Ox O2 Delivery O2 Flow Rate FiO2 12/02/16 16:09 36.7 90 16 165/109 95 Room Air Exam General: Appears calm and pain-free at this time, no acute distress HEENT: sclerae anicteric, oral mucosa moist Neck: no JVD Chest: clear to auscultation Cardiac: S1S2, no murmur Abdomen: BS normal, non-tender Extremities: No edema Neuro: A&O, cranial nerves symmetric, motor strength 5/5, coordination normal Test 12/01/16 11:10 12/01/16 23:31 12/02/16 08:48 White Blood Count 5.1th/mm3 (3.8-10.1) Red Blood Count 4.77mil/mm3 (4.40-5.80) Hemoglobin 14.4g/dL (13.8-17.2) Hematocrit 40.0% (41.0-50.0) Mean Corpuscular Volume 83.9fL (81-100) Mean Corpuscular Hemoglobin 30.2pg (27.0-35.0) Mean Corpuscular Hemoglobin Concent 36.0% (32.0-37.0) Red Cell Distribution Width 13.3% (12.3-15.4) Platelet Count 150bil/L (150-400) Neutrophils (%) (Auto) 60.8% (40-74) Lymphocytes (%) (Auto) 30.3% (14-46) Monocytes (%) (Auto) 6.5% (4-12) Eosinophils (%) (Auto) 1.8% (0-5) Basophils (%) (Auto) 0.4% (0-3) Prothrombin Time 10.8sec (8.1-12.5) Prothromb Time International Ratio 1.01ratio Total Bilirubin 0.2mg/dL (0.0-1.2) Aspartate Amino Transf (AST/SGOT) 14U/L (0-50) Alanine Aminotransferase (ALT/SGPT) 15U/L (0-44) Alkaline Phosphatase 62U/L (25-150) Pro-B-Type Natriuretic Peptide 452.7pg/mL (0-121) Total Protein 7.5g/dL (6.4-8.4) Albumin 4.3g/dL (3.4-5.0) Hold [place] Top Tube Received (Received) Sodium Level 138mEq/L (134-144) Potassium Level 4.9mEq/L (3.5-5.2) Chloride Level 107mEq/L (97-108) Carbon Dioxide Level 17mmol/L (18-29) Blood Urea Nitrogen 42mg/dL (6-24) Creatinine 2.80mg/dL (0.76-1.27) Estimat Glomerular Filtration Rate 26mL/min (>59) Glucose Level 175mg/dL (60-99) Calcium Level 9.3mg/dL (8.5-10.1) Magnesium Level 1.6mg/dL (1.6-2.6) Troponin T 0.031ug/L (0.0-0.011) Discharge Medications Discharge Medications Aspirin (Aspirin) 81 Mg Tablet 81 MG PO DAILY (Reported) Cetirizine HCl (Zyrtec) 10 Mg Capsule 10 MG PO HS (Reported) Chlorthalidone (Chlorthalidone) 25 Mg Tablet 25 MG PO DAILY Prescribed by: RUFINO POLANCO DO Clonidine 0.3 mg/day Patch (Catapres TTS-3) 1 Each Patch 1 PATCH TOPICAL Q7D Prescribed by: LION MUNIZ MD Clopidogrel Bisulfate (Plavix) 75 Mg Tablet 75 MG PO DAILY Prescribed by: TRISTIN FORD MD Duloxetine (Duloxetine) 60 Mg Capsule.dr 90 MG PO DAILY (Reported) Gemfibrozil (Lopid) 600 Mg Tablet 600 MG PO BIDAC Prescribed by: TRISTIN FORD MD Lisinopril (Lisinopril) 20 Mg Tablet 20 MG PO DAILY Prescribed by: LION MUNIZ MD Sodium Bicarbonate (Sodium Bicarbonate) 650 Mg Tablet 650 MG PO DAILY (Reported ) Torsemide (Torsemide) 20 Mg Tablet 20 MG PO DAILY (Reported) As needed Insulin Glargine (Lantus U100 Solostar Insulin Pen) 100 Unit/1 Ml Insuln.pen 10 UNIT SUBQ HS PRN PRN Blood Sugar above 80 (Reported) Insulin Regular, Human (HUMulin-R U100 Insulin Vial) 100 Unit/1 Ml Vial 15 UNITS SUBQ 2-3X/day PRN PRN If blood sugar above 200 (Reported) Nitroglycerin SL (Nitrostat) 0.4 Mg Tab.subl 0.4 MG SL Q5MIN PRN PRN For Chest Pain Prescribed by: COLIN RAMIREZ MD Trazodone (Trazodone) 50 Mg Tablet 50 MG PO HS PRN PRN prn (Reported) Additional med instructions 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 The patient will contact the [facility] family practice clinic for a post-hospitalization follow-up within 1 week. He needs a new provider as a previous patient of Dr. Polanco. Discharge Diet: Diabetic (low-sodium) Discharge Activity: Other (avoid strenuous exertion in hot weather for the next 1-2 weeks) Patient Instructions We encourage you to follow-up with the [facility] for spinal manipulation to manage chronic spinal pain. You may also discuss this problem at your family practice follow-up appointment. We recommend against using Dilaudid, codeine or other narcotic analgesics, because this may worsen your chronic pain disorder in the long run. Time spent 35 minutes Vipul Fernandez MD Dec 02, 2016 17:15
--- NOTE | 2016-12-02 18:36 | NUR ---
D/C.. Pt continues to c/o back/neck discomfort but no chest pain or SOB. Med with Dilaudid and stated the IV doses helped decrease the pain. Declined taking any po doses stating "they never work." Was taking for a stress test/ nuclear scan. Imelda procedure well and test was negative per MD. Paper work faxed to OMT clinic for follow up. D/C orders received and pt d/c home accompanied by and daughter with belongings.
== END 2016-12-02 18:45 | disposition home or self-care (01) ==
LOC: SED 10:53 → INTOOBSV 14:41 → PCC 14:41
PROVIDERS: ADMIT Internal Medicine; ATTEND Internal Medicine
DX: I16.0 Hypertensive urgency (principal); F19.939 Other psychoactive substance use, unspecified with withdrawal, unspecified; R07.9 Chest pain, unspecified; I12.9 Hypertensive chronic kidney disease with stage 1 through stage 4 chronic kidney disease, or unspecified chronic kidney disease; N18.4 Chronic kidney disease, stage 4 (severe); E11.22 Type 2 diabetes mellitus with diabetic chronic kidney disease; E78.1 Pure hyperglyceridemia; M54.2 Cervicalgia; M54.9 Dorsalgia, unspecified; I25.10 Atherosclerotic heart disease of native coronary artery without angina pectoris; F32.9 Major depressive disorder, single episode, unspecified; E78.5 Hyperlipidemia, unspecified; B18.2 Chronic viral hepatitis C; I25.2 Old myocardial infarction; Z88.0 Allergy status to penicillin; Z88.8 Allergy status to other drugs, medicaments and biological substances; Z91.048 Other nonmedicinal substance allergy status; Z79.82 Long term (current) use of aspirin; Z79.4 Long term (current) use of insulin; Z95.5 Presence of coronary angioplasty implant and graft; Z87.891 Personal history of nicotine dependence
CPT/HCPCS: 36415; 70450; 71010; 78452; 80048; 80053; 83036; 83735; 83880; 84484; 85025; 85610; 93005; 93017; 96372; 96374; 96375; 96376; 99285; A9502; G0378; J1170; J1644; J1815; J2405; J2785

== ENCOUNTER 2017-01-28 13:46 | Observation (INO) | payer OTHER ==
[~2017-01-28] VITALS: Ht 180.3 cm; Wt 100.0 kg
[~2017-01-28 13:46] MED LIST changes: -ACET1TAB12 PO; -HYDR2TAB27 PO
[2017-01-28 13:50] VITALS: BP 170/109; PULSE 122; RESP 18; O2SAT 100
--- NOTE | 2017-01-28 14:10 | PCM.EDPN ---
ED Note Date of Service Jan 28, 2017 Patient is a 46 year old male who presents to the ED complaining of confusion onset this morning after taking a new medication (methocarbamol) last night. He reports that after taking the medication, he woke in the middle of the night and felt like he was hallucinating. This morning he went to breakfast [place] He does not remember anything from the time he finished breakfast (around 10am) until around noon. He reports he ended up in [place] and has no recollection of how he got there or why he was there. He then tried to get home and ended up in [place]. His reports that around noon when he called her again, he sounded like his speech was slurred and he was stuttering. He called his several more times who then picked him up as he could not drive home and was "stumbling" about. He currently complains of a headache, joint pain, and hand numbness. He denies being confused presently. I did initial evaluation on the patient to see if a stroke code needed to be called. The patient's symptoms are resolving and he is 3-4 hours out from the incident therefore is not a TPA candidate. ED Scribe Statement Portions of this note were transcribed by Oma Theodore. I, Dr. Pierson personally performed the history, physical exam and medical decision-making; I reviewed and confirmed the accuracy of the information in the transcribed note. Signed by: Matt Ferguson, 01/28/17 Adelina Pierson MD Jan 28, 2017 14:10 OMA THEODORE Jan 28, 2017 14:55
--- NOTE | 2017-01-28 14:13 | ED.REPORT ---
HPI-Stroke / CVA Jan 28, 2017 ED Provider: Andreas Price MD The pt is a 46 y/o male w/ a hx of a OH, CAD, hepatitis C, diabetes, HTN, hyperlipidemia, and chronic kidney disease presenting to the ED due to confusion. The pt reports taking methocarbamol for the first time last night, and woke up in the middle of the night w/ hallucinations. He also reports experiencing a headache, hand numbness, abdominal pain, weakness, vomiting, and arthralgia. Denies fevers. The pt was normal at 1000 this morning but called his at 1119 with slurred speech, stuttering, and being confused at where he was, per the . He reports attempting to drive to [place] but ending up in [place] instead. The pt does not remembering anything from [id number]. Nursing Notes Stated Complaint: CONFUSION, SLURRED SPEECH Chief Complaint: Confusion Nursing Notes Reviewed: Yes Allergies: Coded Allergies: Beta-Blockers (Beta-Adrenergic Bloc (Verified Allergy, Severe, "see lights ", 01/28/17) Penicillins (Verified Allergy, Severe, rashes, 12/01/16) celecoxib (Verified Allergy, Severe, rashes, 12/01/16) TAKING ASPIRIN AT HOME hydrocodone bitartrate (Verified Allergy, Severe, rash.MS COLE, 12/01/16) agitation zolpidem tartrate (Verified Allergy, Severe, Agitation, 12/01/16) TAPE (Verified Allergy, Intermediate, Rash,Itching,, 12/01/16) oxycodone (Verified Allergy, Intermediate, RASH, ITCHING, 12/01/16) alprazolam (Verified Allergy, Unknown, Hallucinations, 12/01/16) ibuprofen (Verified Allergy, Unknown, Kidney problems, 12/01/16) TAKING ASPIRIN AT HOME Scheduled Aspirin (Aspirin) 81 Mg Tablet 81 MG PO DAILY (Reported) Cetirizine HCl (Zyrtec) 10 Mg Capsule 10 MG PO HS (Reported) Chlorthalidone (Chlorthalidone) 25 Mg Tablet 25 MG PO DAILY Clonidine 0.3 mg/day Patch (Catapres TTS-3) 1 Each Patch 1 PATCH TOPICAL Q7D Clopidogrel Bisulfate (Plavix) 75 Mg Tablet 75 MG PO DAILY Duloxetine (Duloxetine) 60 Mg Capsule.dr 90 MG PO DAILY (Reported) Gemfibrozil (Lopid) 600 Mg Tablet 600 MG PO BIDAC Lisinopril (Lisinopril) 20 Mg Tablet 20 MG PO DAILY Sodium Bicarbonate (Sodium Bicarbonate) 650 Mg Tablet 650 MG PO DAILY (Reported ) Torsemide (Torsemide) 20 Mg Tablet 20 MG PO DAILY (Reported) Scheduled PRN Insulin Glargine (Lantus U100 Solostar Insulin Pen) 100 Unit/1 Ml Insuln.pen 10 UNIT SUBQ HS PRN PRN Blood Sugar above 80 (Reported) Insulin Regular, Human (HUMulin-R U100 Insulin Vial) 100 Unit/1 Ml Vial 15 UNITS SUBQ 2-3X/day PRN PRN If blood sugar above 200 (Reported) Nitroglycerin SL (Nitrostat) 0.4 Mg Tab.subl 0.4 MG SL Q5MIN PRN PRN For Chest Pain Trazodone (Trazodone) 50 Mg Tablet 50 MG PO HS PRN PRN prn (Reported) General Time Seen by Provider: 13:46 Chief Complaint Confusion Hx Obtained From: Patient, Spouse Arrived By: Walk-in Time last known well 1000 Sudden in Onset?: Yes Symptom Duration: Intermittent Progression Since Onset: Rapidly improving Recent Healthcare: No recent doctor visit, No recent hospitalization Similar Sx Previous: No Risk Factors NIH Stroke Scale Level of Consciousness: Alert and responsive (0) Ask Month & Age: Both questions right (0) Open/Close Eyes/Hand Pantograph Machine Set Up Operator: Performs both tasks (0) Horizontal EO Movements: None (0) Visual Pro: No visual loss (0) Facial Palsy: Normal symmetry (0) Right Arm Motor Drift (10s): No drift 10 sec (0) Left Arm Motor Drift (10s): No drift 10 sec (0) Right Leg Motor Drift (5s): No drift 5 sec (0) Left Leg Motor Drift (5s): No drift 5 sec (0) Limb Ataxia FNF/Heel-Xie: No ataxia (0) Sensation (Arms/Legs/Face): No sensory loss (0) Language Aphasia: No aphasia, normal (0) Dysarthria: No dysarthria, normal (0) Extinction/Inattention: No exctinct/inattent (0) NIHSS Score: 0 Time NIHSS Performed: 14:17 Date NIHSS Performed: Jan 28, 2017 Past Medical History Past Medical History OH CAD Hepatitis C, chronic Kidney disease (chronic) with baseline creatinine 1.4 Pancreatitis History of cellulitis ( admit Jan 08-2015, I&D required for right middle finger) Obstructive sleep apnea Reports: Coronary artery disease, Diabetes mellitus, Hyperlipidemia, Hypertension Past Surgical History Multiple orthopedic surgeries, including four shoulder surgeries, four hand surgeries (including carpal tunnel release bilaterally), left knee surgery, cholecystectomy, tonsillectomy. Two Stents LAD 07/05/14, 3x cardiac stents total I&D of right middle finger on 01/10/2016 Family History Reports: Coronary artery disease, Hypertension Smoking History Former Smoker Social History Alcohol Use: "Social" Drug Use: Denies drug use Other Social History: Smokeless tobacco, Good social support, , Local resident Ambulatory Status Independent Review of Systems +Arthralgia; +Forgetfulness; +Stuttering; Constitutional: Denies: Fever GI: Reports: Abdominal pain, Nausea, Vomiting Neurologic: Reports: Confusion, Headache, Numbness (Handness ), Slurred speech , Weakness Psychiatric: Reports: Hallucinations, auditory, Hallucinations, visual Complete sys rev & neg: except as marked. Physical Exam Initial Vital Signs Vital Signs (First) Date Time Temp Pulse Resp B/P Pulse Ox O2 Delivery O2 Flow Rate FiO2 01/28/17 13:50 37.0 122 18 170/109 100 Room Air Initial VS: Reviewed ENT: Mucous membranes moist, Conjunctiva normal, No scleral icterus Abdomen / GI: Soft, Non-tender, No guarding, No rebound, No distention Extremities: Vascular intact, Neuro intact, No swelling, No tenderness Skin: Warm, Dry, No cyanosis Psychiatric: Mood/affect normal, Behavior normal, Normal thought content General/Constitutional: Awake, Alert Head / Eyes: Atraumatic, Normocephalic, PERRL, EOMI Neck: Atraumatic, Supple, Full range of motion, No midline vertebral tend Respiratory / Chest: Atraumatic, Breath sounds NL, Breath sounds = bilat Cardiovascular: Regular rhythm, Heart sounds NL Heart Rate / Rhythm: Positive: Tachycardia Neurologic: Oriented X3, Speech NL Interpretation & Diagnostics Lab Results Interpretation Result Diagram: 01/28/17 1405 01/28/17 1405 Test 01/28/17 14:05 White Blood Count 8.2th/mm3 (3.8-10.1) Red Blood Count 5.12mil/mm3 (4.40-5.80) Hemoglobin 15.4g/dL (13.8-17.2) Hematocrit 42.0% (41.0-50.0) Mean Corpuscular Volume 82.0fL (81-100) Mean Corpuscular Hemoglobin 30.1pg (27.0-35.0) Mean Corpuscular Hemoglobin Concent 36.7% (32.0-37.0) Red Cell Distribution Width 13.1% (12.3-15.4) Platelet Count 190bil/L (150-400) Neutrophils (%) (Auto) 70.3% (40-74) Lymphocytes (%) (Auto) 21.9% (14-46) Monocytes (%) (Auto) 6.3% (4-12) Eosinophils (%) (Auto) 0.9% (0-5) Basophils (%) (Auto) 0.5% (0-3) Prothrombin Time 10.0sec (8.1-12.5) Prothromb Time International Ratio 0.94ratio Activated Partial Thromboplast Time 24.6sec (22.8-33.0) Sodium Level 134mEq/L (134-144) Potassium Level 5.6mEq/L (3.5-5.2) Chloride Level 103mEq/L (97-108) Carbon Dioxide Level 15mmol/L (18-29) Blood Urea Nitrogen 56mg/dL (6-24) Creatinine 2.70mg/dL (0.76-1.27) Estimat Glomerular Filtration Rate 27mL/min (>59) Glucose Level 279mg/dL (60-99) Calcium Level 9.8mg/dL (8.5-10.1) Magnesium Level 1.7mg/dL (1.6-2.6) Total Bilirubin 0.2mg/dL (0.0-1.2) Aspartate Amino Transf (AST/SGOT) 13U/L (0-50) Alanine Aminotransferase (ALT/SGPT) 14U/L (0-44) Alkaline Phosphatase 67U/L (25-150) Troponin T 0.026ug/L (0.0-0.011) Total Protein 7.9g/dL (6.4-8.4) Albumin 4.6g/dL (3.4-5.0) Lipase 87U/L (13-60) Hold [place] Top Tube Received (Received) ECG Interpretation ECG Interpretation: Rate 110 Sinus tachycardia Time: 15:17 Interpreted by: ED physician X-Ray Chest Interpretation Chest Xray Interpretation: IMPRESSION: No acute disease Dictated by: Don Ngo M.D. on 01/28/2017 at 15:23 Approved by: Don Ngo M.D. on 01/28/2017 at 15:24 View: Portable, 1 view Interpretation / Wet Read by: Interpret - Radiologist CT Head Interpretation IMPRESSION: No acute intracranial abnormality Dictated by: Don Ngo M.D. on 01/28/2017 at 15:03 Approved by: Don Ngo M.D. on 01/28/2017 at 15:04 Study: Head CT no contrast Interpretation / Wet Read by: Interpret - Radiologist Re-Eval/Medical Decision Med Decision/Clinical Course 46-year-old male with history of CAD, chronic pancreatitis, chronic kidney disease, hep C presenting with slurred speech and confusion earlier today that resolved prior to arrival. CT scan of pathology. His NIH stroke scale is 0. His creatinine is elevated and his troponins are mildly elevated which is consistent with chronic. He denies any chest pain. Patient did take methocarbamol last night. He is requesting narcotics in the ED. I cannot rule out that this is medication related. However also cannot rule out stroke TIA. Patient will be admitted for TIA workup. Source of Hx: Old records Re-Evaluation/Progress : Time of Eval: 15:59 Re-Evaluation/Progress Note: Pt rechecked. Informed pt of need for admission. Pt understands and agrees with plan for admission. All questions addressed. Consultation : Referral / Consult Name: BrittanyBeatriz Marlena WEBB Consulted With: Hospitalist Call Returned at: 15:58 Manager Distribution: Will see patient, Agrees with eval, Agrees with plan, Accepts admit Counseled Regarding: Diagnosis, Lab results, Need for admission Patient Discharge & Departure Impression: Primary Impression: TIA (transient ischemic attack) Transient cerebral ischemia type: unspecified Qualified Code: G45.9 - Transient cerebral ischemic attack, unspecified Disposition: ADMITTED TO HOSPITAL Discharge Condition All VS Reviewed: Yes Condition: Stable Referrals: [facility] (PCP) Scribe Attestation Portions of this note were transcribed by Rashaun Rosado. I, Dr. Price personally performed the history, physical exam and medical decision-making; I reviewed and confirmed the accuracy of the information in the transcribed note. copies to: [facility] Andreas Price MD Jan 28, 2017 14:13 Rashaun Rosado Jan 28, 2017 14:36
[2017-01-28 14:17] LABS: BASOPHILS % (AUTO) 0.5 % (0-3); EOSINOPHILS % (AUTO) 0.9 % (0-5); MONOCYTES % (AUTO) 6.3 % (4-12); Mean Corpuscular Hemoglobin 30.1 pg (27.0-35.0); NEUTROPHILS % (AUTO) 70.3 % (40-74); Platelet Count 190 bil/L (150-400)
[2017-01-28 14:38] LABS: INR 0.94 ratio
[2017-01-28 14:45] LABS: TROPONIN T 0.026 ug/L (0.0-0.011)
--- NOTE | 2017-01-28 15:06 | DRSVH ---
PROCEDURE: CT BRAIN WITHOUT CONTRAST ([id number]) INDICATIONS: SLURRED SPEECH TECHNIQUE: Noncontrast 4.5 mm thick angled axial sections acquired from the foramen magnum to the vertex, with c oronal reformats. COMPARISON: [facility], CT, CT BRAIN WO CON, 12/01/2016, 12:01. FINDINGS: Image quality: Excellent. CSF spaces: Basal cisterns are patent. No extra-axial fluid collections. Ventricles are normal in size and shape. Brain: No midline shift. No intracranial masses or hemorrhage. Sanchez-white matter interface is norm al. Skull and face: Calvarium and visualized facial bones are intact, without suspicious lesions. Sinuses: Visualized sinuses and mastoids are clear. IMPRESSION: No acute intracranial abnormality Dictated by: Don Ngo M.D. on 01/28/2017 at 15:03 Approved by: Don Ngo M.D. on 01/28/2017 at 15:04
[2017-01-28] MEDS ORDERED: HYDROcodone-APAP 5-325 mg Tablet PO ONE (15:10)
--- NOTE | 2017-01-28 15:25 | DRSVH ---
PROCEDURE: X-RAY CHEST ONE VIEW, PORTABLE ([id number]) INDICATIONS: altered mental status TECHNIQUE: One view of the chest was acquired. COMPARISON: [facility], CR, XR CHEST 1VW (PORTABLE), 12/01/2016, 11:46. FINDINGS: Surgical changes and devices: None. Lungs and pleura: No pleural effusions or pneumothorax. Lungs are clear. Mediastinum: Mediastinal contours appear normal. Heart size is normal. Bones and chest wall: Chronic right clavicle fracture IMPRESSION: No acute disease Dictated by: Don Ngo M.D. on 01/28/2017 at 15:23 Approved by: Don Ngo M.D. on 01/28/2017 at 15:24
[2017-01-28] MEDS ORDERED: Labetalol 5 mg/mL 20 mL Inj IVPUSH PRN (16:10)
[2017-01-28] MEDS ORDERED: Ondansetron 2 mg/mL 2 mL Inj IVPUSH PRN (16:10)
[2017-01-28] MEDS ORDERED: Alum-Mag Hydrox-Simeth 30 mL Suspension PO PRN (16:10)
[2017-01-28] MEDS ORDERED: Polyethylene Glycol (PEG) 17 Gm Powder PO PRN (16:10)
--- NOTE | 2017-01-28 16:17 | NUR ---
Evaluation completed. Please go to "Notes" then click on "Assessments and Notes" (bottom left corner of screen). Then select appropriate discipline tab on top of screen.
[2017-01-28 16:21] VITALS: BP 151/108; PULSE 99; RESP 16; O2SAT 99
[2017-01-28] MEDS: Heparin 5,000 Unit/mL Inj SUBQ SCH ×2 (16:30→20:18)
--- NOTE | 2017-01-28 17:16 | NUR ---
Admission Patient arrived to floor at approx 1655 via WC alone. Oriented to room and hospital policies. A/O x 3. Denies confusion. MD at bedside.
[2017-01-28 17:40] VITALS: BP 160/125; PULSE 79; RESP 15; O2SAT 96
[2017-01-28 17:56] VITALS: PULSE 87
--- NOTE | 2017-01-28 18:18 | NUR ---
Pain Pt requesting pain medications. Specifically requesting IV dilaudid. States hx of chronic back pain. While describing pain patient is watching tv in bed, not diaphoretic or grimacing. MD grissom. Addendum: 01/28/17 at 1835 by SUMA MCGARRY RN MD informed of request of pain meds. Also notified MD of elevated BP. Per MD no narcotics will be given at this time. Patient states he did take his meds this morning. Unable to state names or doses. Attempted to contact but she did not answer phone and unable to leave voicemail. Patient states that only medication that will lower BP is IV dilaudid.
--- NOTE | 2017-01-28 18:20 | PCM.HPMED ---
Subjective Date of Service Jan 28, 2017 Primary Provider: Admitting Physician: Jamie Nicole MD Primary Care Physician: Alexx,[facility] Residency Attending Physician: Jamie Nicole MD Admit Status: From the Emergency Department, 23-Hour Observation, Admit to Green Team Chief Complaint: Slurred speech and confusion. . History of Present Illness: Guy Nguyen Junior is a 46-year-old male with a past medical history significant for CAD status post TN with stenting 3, hypertension, hyperlipidemia, diabetes mellitus type II, insulin using, with complication of diabetic nephropathy, tobacco use disorder, and chronic kidney disease stage IV who presented to [facility] emergency Department due to confusion. The patient reports that he was going to meet his father in [place] and ended up in [place]. He then drove to [place] and decided to call his as he was unsure of what he was doing or where he was going. He then went to his parent's house in [place] who subsequently urged him to go to the emergency department. He reports that he has had a headache, nausea, and vomited 1. Per ER physician's report, his reported that he had slurred speech, stuttering and was confused when he called her on the phone. His last known normal was at 1000 this morning. The patient does not remembering anything from [id number]. The patient reports taking methocarbamol for the first time last night, and woke up in the middle of the night with hallucinations. He also reports experiencing a headache, left-sided head numbness, epigastric abdominal pain, weakness, vomiting, and arthralgia. He denies vision changes, sore throat, cough, shortness of breath, fever, chills, dysuria, diarrhea or constipation. Vital signs in the ER: Temperature 37.0. Pulse 122. Respiratory rate 18. Blood pressure 170/109. Pulse ox 90% on room air. He was given acetaminophen 975 mg 1 and hydromorphone 1 mg 1 in the ED. PCP is Dr. Prasad Yi. Consumer Affairs Specialist is Dr. Tai Ryan. . Review of Systems: A comprehensive review of systems was conducted with the patient and found to be negative except as above in the History of Present Illness. . Allergies Coded Allergies: Beta-Blockers (Beta-Adrenergic Bloc (Verified Allergy, Severe, "see lights ", 01/28/17) Penicillins (Verified Allergy, Severe, rashes, 12/01/16) celecoxib (Verified Allergy, Severe, rashes, 12/01/16) TAKING ASPIRIN AT HOME hydrocodone bitartrate (Verified Allergy, Severe, rash.MS COLE, 12/01/16) agitation zolpidem tartrate (Verified Allergy, Severe, Agitation, 12/01/16) TAPE (Verified Allergy, Intermediate, Rash,Itching,, 12/01/16) oxycodone (Verified Allergy, Intermediate, RASH, ITCHING, 12/01/16) alprazolam (Verified Allergy, Unknown, Hallucinations, 12/01/16) ibuprofen (Verified Allergy, Unknown, Kidney problems, 12/01/16) TAKING ASPIRIN AT HOME Home Medications Medications taken from outpatient records not yet verified: Aspirin 81 mg daily. Cetirizine 10 mg daily at bedtime. Chlorthalidone 25 mg daily. Clonidine 1 patch topically every 7 days. Clopidogrel 75 mg daily. Colchicine 0.6 mg daily. Duloxetine 90 mg daily. Gemfibrozil 600 mg twice a day before meals. Hydralazine 100 mg twice a day. Lantus 40 units twice a day. Humulin R 35 U twice a day with breakfast and dinner based on correctional scale. Lisinopril 20 mg daily. Nitroglycerin 0.4 mg sublingual every 5 minutes as needed for chest pain. Sodium bicarbonate 650 mg daily. Torsemide 20 mg daily. Trazodone 50 mg daily at bedtime as needed for insomnia. . PMH 1. Diabetes mellitus type II, insulin using, with complication of diabetic nephropathy. 2. Hypertension. 3. Hyperlipidemia. 4. Chronic kidney disease stage IV. 5. CAD status post TN with stents 3. 6. Chronic back pain. 7. Chronic pancreatitis secondary to hypertriglyceridemia. 8. History of right-sided Truong's palsy. 9. Hepatitis C. 10. Obstructive sleep apnea not on CPAP. 11. Seasonal allergies. 12. Depression. 13. Insomnia. 14. Tobacco use disorder. 15. Gout. . Surgical History 1. Right shoulder ORIF, AC joint fusion, and rotator cuff repair. 2. Coronary stents 3. 3. Left knee meniscal repair. 4. Cholecystectomy. 5. Tonsillectomy. 6. Bilateral carpal tunnel release. 7. Bilateral wrist surgeries. . Family History Mother with chronic back pain. Dad with history of TN in his 40s, hypertension , hyperlipidemia, and diabetes mellitus type II. He has one brother who is healthy. He has a sister who was murdered. . Social History Hx Alcohol Use: Yes (in his 20's) Hx Substance Use: Yes (in his 20's he tried everything including IV drugs) Hx Tobacco Use: Yes (39-guoa-wiij history, quit in 2000, currently chews tobacco) Smoking Status: Former Smoker Additional Information The patient is a 19 years. He has 2 daughters who are healthy. He is currently disabled. . Exam Vital Signs Vital Sign - Last Date Time Temp Pulse Resp B/P Pulse Ox O2 Delivery O2 Flow Rate FiO2 01/28/17 16:21 36.5 99 16 151/108 99 Room Air Exam General: Middle-aged male lying in bed and in no acute distress, well-developed , well-nourished, appropriately interactive. HEENT: Normocephalic, atraumatic. External ears without defect. Pupils equal, round, and reactive to light. Anicteric sclerae, moist conjunctivae, and no lid lag. Oropharynx free of erythema and cobble stoning with moist mucosa. Neck: Supple with full range of motion. No jugular venous distension. No bruits. No lymphadenopathy or thyromegaly. Cardiovascular: Regular rate and rhythm without murmurs, rubs, or gallops appreciated Pulmonary: Clear to auscultation bilaterally without crackles, wheezes, or rhonchi. Normal respiratory effort with no use of accessory muscles. Abdomen: Soft, very mild tenderness to palpation in midepigastrium, nondistended , bowel sounds present. No hepatosplenomegaly or masses appreciated. Extremities: No clubbing, cyanosis, or edema. Skin: Normal temperature, turgor, and texture; no rash, ulcers, or subcutaneous nodules appreciated. Neurological: Cranial nerves grossly intact. Normal muscle strength, tone, and bulk except for chronic upper extremity weakness. No dysmetria. Plantar reflexes normal. Deep tendon reflexes, coordination, and sensory function within normal limits. No known gait impairment. Psychiatric: Normal mood and flat affect. Alert and oriented to person, place, and time. . Lab and Diagnostics Labs Item Value Date Time Prothrombin Time 10.0 sec 01/28/17 1405 Prothromb Time International Ratio 0.94 ratio 01/28/17 140 Activated Partial Thromboplast Time 24.6 sec 01/28/17 140 Item Value Date Time Calcium Level 9.8 mg/dL 01/28/17 140 Magnesium Level 1.7 mg/dL 01/28/17 1405 Total Bilirubin 0.2 mg/dL 01/28/17 1405 Aspartate Amino Transf (AST/SGOT) 13 U/L 01/28/17 1405 Alanine Aminotransferase (ALT/SGPT) 14 U/L 01/28/17 1405 Alkaline Phosphatase 67 U/L 01/28/17 1405 Troponin T 0.026 ug/L H 01/28/17 1405 Total Protein 7.9 g/dL 01/28/17 1405 Albumin 4.6 g/dL 01/28/17 1405 Lipase 87 U/L H 01/28/17 1405 Result Diagram: 01/28/17 14001/28/17 140 X-Rays, CTs and MRIs CT BRAIN WITHOUT CONTRAST IMPRESSION: No acute intracranial abnormality Dictated by: Don Ngo M.D. on 01/28/2017 at 15:03 X-RAY CHEST ONE VIEW, PORTABLE IMPRESSION: No acute disease Dictated by: Don Ngo M.D. on 01/28/2017 at 15:23 . 12-lead ECG EKG: Sinus rhythm, tachycardic heart rate 110, normal axis, normal intervals, normal R-wave progression, peaked T waves in lead V2 -V3, no pathological Q waves or acute ischemic changes such as ST elevation or depression. . Assessment & Plan Guy Nguyen Junior is a 46-year-old male with a past medical history significant for CAD status post TN with stenting 3, hypertension, hyperlipidemia, diabetes mellitus type II, insulin using, with complication of diabetic nephropathy, tobacco use disorder, and chronic kidney disease stage IV who presented to [facility] emergency Department due to confusion. 1. Acute encephalopathy, present on admission. Active. - The patient presented with transient confusion, slurred speech, and a period of amnesia without facial droop or focal extremity weakness. - CVA risk factors include: CAD status post stenting x3, hypertension, hyperlipidemia, diabetes mellitus type II, former smoker and currently chews tobacco, RACHEL not on CPAP and family history of CV disease. - Differential diagnosis includes: TIA versus hypertensive emergency with encephalopathy versus transient global amnesia versus medication reaction versus substance use. - NIHSS on admission was 0. - CT brain without contrast did not demonstrate any acute intracranial abnormalities. - Ordered bilateral carotid Doppler ultrasound, pending. - Ordered echocardiogram, pending. - Ordered physical, occupational, and speech therapies. - Ordered fasting lipid panel. - Continue neuro checks for the first 24 hours. - Continue aspirin 81 mg daily and Plavix 75 mg daily. - Avoid narcotics due to acute encephalopathy. - Ordered MRI stroke protocol, however, the patient does have hardware in his right shoulder which may be a contraindication to MRI. If so will proceed with CTA brain. Chronic problems: 2. CAD status post TN with stenting x 3 vessels. - Continue Plavix 75 mg daily and aspirin 81 mg daily. 3. Multi-drug resistant hypertension, present on admission. Stable. - Continue chlorthalidone 25 mg daily, clonidine 1 patch topically every 7 days , lisinopril 20 mg daily, torsemide 20 mg daily and hydralazine 100 mg twice a day. 4. Hypertriglyceridemia, present on admission. Stable. - Continue Gemfibrozil 600 mg twice a day before meals. - Ordered fasting lipid panel in the morning. 5. Diabetes mellitus type II, insulin using, with complication of diabetic nephropathy. - Last hemoglobin A1c 7.8% on 12/2016. Repeat hemoglobin A1c pending. - Once patient cleared by speech ordered a carbohydrate insistent/heart healthy diet. - Continue Lantus 40 units every morning. - Ordered medium dose correctional scale insulin. 6. Chronic kidney disease stage IV, present on admission. Stable. - Initial creatinine on admission was 2.70. Baseline creatinine 2.5-2.8. - Avoid nephrotoxic agents. - Continue sodium bicarbonate 650 mg daily. - Continue to monitor creatinine daily. - The patient is seen by Dr. Ryan of nephrology. 7. Obstructive sleep apnea not on CPAP, present on admission. Stable. - May use nocturnal oxygen as necessary. 8. Chronic back pain, present on admission. Stable. - Avoid narcotics due to acute encephalopathy. - May use Tylenol as needed for now. 9. Chronic pancreatitis secondary to hypertriglyceridemia, not present on admission. Stable. - Patient reports he has been having some epigastric tenderness. PE was benign. - Lipase 87 but in context of chronic pancreatitis would not be elevated. - If patient against to have symptoms consistent with pancreatitis will consider CT abdomen and pelvis. 10. Seasonal allergies, present on admission. Stable. - Continue cetirizine 10 mg daily at bedtime. 11. Depression, present on admission. Stable. - Continue duloxetine 90 mg daily. 12. Insomnia, present on admission. Stable. - Continue trazodone 50 mg daily at bedtime as needed for insomnia. 13. Tobacco use disorder, present on admission. Stable. - Ordered nicotine patch as needed for nicotine withdrawal. 14. History of right-sided Truong's palsy. - Unclear previous etiology of right-sided Truong's palsy. 15. Gout, not present on admission. Stable. - Continue colchicine 0.6 mg daily. PRN antiemetics: Zofran and Maalox. PRN bowel regimen: Senna and MiraLAX. PRN analgesics: Tylenol. Patient is admitted under observation status with expected length of stay less than 2 midnights due to severity of presenting symptoms, risk of adverse event, and complexity of treatment plan. . VTE Prophylaxis: Sub-Q Heparin (Unfractionated), SCDs Resuscitation Status: CPR: Attempt Resuscitation Attending Statement patient seen independently,discussed case with Resident physician Dr Soto. I agree with the history,exam,assessment and plan as outlined above copies to: PRASAD YI DO; Tai Ryan Georgia M DO Jan 28, 2017 17:43 Jamie Nicole MD Jan 28, 2017 22:01
[2017-01-28] MEDS ORDERED: Glucose 40% Oral Gel 15 Gm Tube PO PRN (18:25)
[2017-01-28] MEDS ORDERED: Dextrose 10% 250 ML IV PRN (18:35)
[2017-01-28 19:37] VITALS: BP 170/109; PULSE 81; RESP 15; O2SAT 97
[2017-01-28] MEDS: Insulin LISPRO 300 Unit/3 mL Inj SUBQ SCH ×2 (20:19→22:00)
[2017-01-28] MEDS ORDERED: COLC0.6C3 PO (21:18)
[2017-01-28] MEDS ORDERED: INSU100V28 SUBQ (21:26)
[2017-01-28] MEDS ORDERED: Insulin GLARgine 100 Unit/mL Syringe SUBQ PRN (22:00)
--- NOTE | 2017-01-28 22:07 | DRSVH ---
PROCEDURE: MRI STROKE PROTOCOL ([id number]) Pre- and post-contrast brain MRI, non-contrast brain MR angiogram, pre- and postcontrast neck MR wang ogram INDICATIONS: 46 year-old male with slurred speech and confusion. TECHNIQUE: Brain: Noncontrast axial T1 spin echo, axial T2 fast spin echo, sagittal and axial FLAIR, coronal T2 fast spin echo, axial gradient echo, axial diffusion and ADC through the brain. After the administr ation of contrast, axial 3D VIBE of the cranial vasculature and brain. Brain MRA: Non-contrast 3-D time of flight MR angiogram, with multiple pbqrgly-pfiyfszaa-ajiqpmpxss (MIP) reformats performed. Neck MRA: Axial and sagittal TruFISP through the neck. Coronal dynamic MR angiogram during administ ration of contrast in the arterial and venous phases, with 3-dimenstional tmleozz-mltgrohzo-ukgrbmmat n (MIP) reformats constructed from subtraction images. COMPARISON: [facility], MR, MR BRAIN WO CON, 08/21/2016, 7:00. [facility], C T, CT BRAIN WO CON, 01/28/2017, 14:38. FINDINGS: Image quality: Several sequences are degraded by mild patient motion. BRAIN: CSF spaces: Ventricles are normal in size and shape. Basal cisterns are patent. No extra-axial flu id collections. Brain: No intracranial bleeds or mass effects. Sanchez-white matter interface is normal. There is loc alized hemosiderin deposition within the left subinsular region. Diffusion weighted images show no ac chicken ranch ischemic insults. Brainstem appears normal. Normal intravascular flow voids are present. No ab normal intracranial enhancement. Skull and face: Calvarial marrow signal is normal. Orbits appear normal. Sinuses: Sinuses and mastoids are clear. BRAIN MR ANGIOGRAM: Anterior circulation: Intracranial internal carotid arteries are normal in size and enhancement. Th e flow within the paired anterior cerebral arteries is normal and symmetric. The flow within the mid dle cerebral arteries is normal and symmetric. The anterior communicating artery is seen. No stenos es, occlusions, or aneurysms. Posterior circulation: The visualized portions of the vertebral arteries demonstrate normal caliber, and join to form a normal appearing basilar artery. The flow within the posterior cerebral arteries is normal and symmetric. No stenoses, occlusions, or aneurysms. NECK MR ANGIOGRAM: Carotids: Great vessels demonstrate a conventional anatomy as they arise from the aortic arch. The origins of the common carotid arteries appear patent. The calibers and courses of both common caroti d arteries are normal. The bifurcation regions appear normal bilaterally. The internal carotid aide radha demonstrate normal course and caliber. Posterior circulation: The origins of the co-dominant vertebral arteries appear patent. More superi or portions of both vertebral arteries demonstrate normal course and caliber, and join to form a norm al appearing basilar artery. Miscellaneous: Subclavian arteries appear patent. Pre-contrast images through the neck show no soft tissue abnormalities. IMPRESSION: BRAIN MRI: 1. No acute intracranial abnormalities. 2. Localized hemosiderin deposition within the left subinsular region would be consistent with solita ry cavernous malformation. BRAIN MR ANGIOGRAM: No hemodynamically significant lesions of the central intracranial vasculature. NECK MR ANGIOGRAM: No hemodynamically significant lesions of the extracranial neck vasculature. The estimate of stenosis included in the report of the imaging study was calculated using the NASCET method Dictated by: Reno Chapin M.D. on 01/28/2017 at 21:53 Approved by: Reno Chapin M.D. on 01/28/2017 at 22:05
[2017-01-28 23:58] VITALS: BP 182/120; PULSE 83; RESP 15; O2SAT 98
[2017-01-29] MEDS: Heparin 5,000 Unit/mL Inj SUBQ SCH ×2 (00:30→10:34)
[2017-01-29 01:11] VITALS: BP 160/100; RESP 18; O2SAT 97
--- NOTE | 2017-01-29 05:04 | NUR ---
NOC PT went for head MRI which was negative. PT continues to c/o back pain and was not happy that he couldnt receive IV dilaudid. ICe given to pt with some relief. PT ambulates independently. B/P hypertensive and pt required one dose of labetolol so far for diastolic of 120.
--- NOTE | 2017-01-29 05:08 | NUR ---
Meds All meds reviewed with pt's . PT apparently has a hx of medication non-adherence as he states that for several meds he does not take them the way MD ordered. FOr example, pt takes glargine only once a day v. bid. Discussed importance of compliance and pt states "I know my own body best." Pt refused some of the ordered meds. See emar.
--- NOTE | 2017-01-29 05:10 | NUR ---
Neuro Neuro intact. L eye ptosis noted which is pt baseline.
[2017-01-29 05:18] VITALS: BP 118/79; PULSE 64; RESP 18; O2SAT 98
[2017-01-29 05:22] VITALS: PULSE 70
[2017-01-29 06:19] LABS: BASOPHILS % (AUTO) 0.5 % (0-3); MONOCYTES % (AUTO) 5.3 % (4-12); Mean Corpuscular Hemoglobin 30.1 pg (27.0-35.0); Mean Corpuscular Volume 83.7 fL (81-100); NEUTROPHILS % (AUTO) 41.6 % (40-74); Platelet Count 138 bil/L (150-400)
[2017-01-29 08:00] VITALS: PULSE 74
[2017-01-29] MEDS ORDERED: DULoxetine 30 mg DR Capsule PO SCH (08:30)
--- NOTE | 2017-01-29 09:19 | NUR ---
Evaluation completed. Please go to "Notes" then click on "Assessments and Notes" (bottom left corner of screen). Then select appropriate discipline tab on top of screen.
[2017-01-29 09:57] VITALS: BP 133/73; PULSE 87; PULSE 92; RESP 16; O2SAT 100
[2017-01-29] MEDS: Insulin LISPRO 300 Unit/3 mL Inj SUBQ SCH ×2 (10:32→12:21)
[2017-01-29 13:40] VITALS: BP 155/101; PULSE 60; RESP 18; O2SAT 96
--- NOTE | 2017-01-29 16:07 | PCM.DIMED ---
Discharge Instructions Date of Service Jan 29, 2017 Dates of Hospitalization Jan 28, 2017 at 16:39 Discharge Diagnosis Discharge Diagnosis 1. Acute encephalopathy, present on admission. resolved Due to medication reaction methocarbamol Chronic problems: 2. CAD status post IA with stenting x 3 vessels. 3. Uncontrolled hypertension, present on admission. Stable. 4. Hypertriglyceridemia, present on admission. Stable. 5. Diabetes mellitus type II, insulin using, with complication of diabetic nephropathy. 6. Chronic kidney disease stage IV, present on admission. Stable. 7. Obstructive sleep apnea not on CPAP, present on admission. Stable. 8. Chronic back pain, present on admission. Stable. 9. Chronic pancreatitis secondary to hypertriglyceridemia, not present on admission. Stable. 10. Seasonal allergies, present on admission. Stable. 11. Depression, present on admission. Stable. 12. Insomnia, present on admission. Stable. 13. Tobacco use disorder, present on admission. Stable. 14. History of right-sided Truong's palsy. 15. Gout, not present on admission. Stable. Diet Discharge Diet: Low fat, Low Sodium, Heart Healthy, Diabetic Activity Discharge Activity: Limited until seen by PCP Call your provider Call your provider for: Fever or Chills, Shortness of breath, Bleeding, Chest pain, Vomitting, Excessive diarrhea, Weakness (unilateral) Patient Instructions Patient Instructions # You were hospitalized due to acute confusion. It seems it is due to methocarbamol adverse reaction. Please do not take/avoid methocarbamol use in the feature. MRI of brain and neck arteries unremarkable. Please follow-up with PCP in 1-2 weeks. Follow-up Provider: Last Wagner DO Follow-up with PCP in: 1 week Jamie Nicole MD Jan 29, 2017 16:07
--- NOTE | 2017-01-29 16:30 | NUR ---
Social Work: Initial Assessment / Multidisciplinary Rounds / Discharge Data: See initial assessment. Patient is a 46 year old male who was admitted on 01/28/17 for TIA. Patient's insurance is [employer] and his PCP is Dr. Prasad Alexis at the [facility]. EMR reviewed. PARVIN met with patient and to discuss discharge planning. SW role explained. Patient reports that he resides with his and two children in [place]. Patient confirms that his is his DPOA and that AD have been completed on his behalf. Patient confirms that he is I at baseline and able to perform all of his ADLs and care needs. Patient confirms that he drives via P[place]. Patient denies a hx of home health services or SNF. Patient denies having jail care insurance or VA benefits. Upon discharge, patient will likely return home with his family. Transportation will be provided by his . SW provided patient with a discharge planning checklist booklet and encouraged him to call with any questions or concerns. Phone number provided. Patient was discussed in morning rounds. No concerns were noted by staff or MD. Patient has been deemed medically stable for discharge today per MD. Patient will have no needs at time of discharge. Assessment: Patient will return home with family. Plan: Patient will discharge home today. Transportation will be provided by spouse. Patient will have no needs at time of discharge. MIRYAM Burns Addendum: 01/29/17 at 1637 by LADI SHELLEY Amended: Links added.
--- NOTE | 2017-01-29 17:10 | NUR ---
Discharge nursing note: Patient was discharged to home at 1710. His IV was removed intact. His Telemetry was discontinued. All of his discharge information was reviewed with him and his questions were answered to his satisfaction. Patient was escorted to the hospital lobby by nursing staff member and he was driven to home by his .
--- NOTE | 2017-01-29 21:58 | PCM.DC.MED ---
Discharge Summary Date of Service Jan 29, 2017 Dates of Hospitalization Date of Hospital Admission Jan 28, 2017 at 16:39 Date of Discharge: Jan 29, 2017 Providers: Admitting Physician: Jamie Nicole MD [facility] Attending Physician: Jamie Nicole MD Diagnosis at Time of Discharge Diagnosis at Time of Discharge 1. Acute encephalopathy, present on admission. resolved Due to medication reaction methocarbamol Chronic problems: 2. CAD status post DE with stenting x 3 vessels. 3. Uncontrolled hypertension, present on admission. Stable. 4. Hypertriglyceridemia, present on admission. Stable. 5. Diabetes mellitus type II, insulin using, with complication of diabetic nephropathy. 6. Chronic kidney disease stage IV, present on admission. Stable. 7. Obstructive sleep apnea not on CPAP, present on admission. Stable. 8. Chronic back pain, present on admission. Stable. 9. Chronic pancreatitis secondary to hypertriglyceridemia, not present on admission. Stable. 10. Seasonal allergies, present on admission. Stable. 11. Depression, present on admission. Stable. 12. Insomnia, present on admission. Stable. 13. Tobacco use disorder, present on admission. Stable. 14. History of right-sided Truong's palsy. 15. Gout, not present on admission. Stable. Procedures XRay, CTs & MRIs CT BRAIN WITHOUT CONTRAST IMPRESSION: No acute intracranial abnormality Dictated by: Don Ngo M.D. on 01/28/2017 at 15:03 X-RAY CHEST ONE VIEW, PORTABLE IMPRESSION: No acute disease Dictated by: Don Ngo M.D. on 01/28/2017 at 15:23 .PROCEDURE: MRI STROKE PROTOCOL ([id number]) Pre- and post-contrast brain MRI, non-contrast brain MR angiogram, pre- and postcontrast neck MR angiogram INDICATIONS: 46 year-old male with slurred speech and confusion. IMPRESSION: BRAIN MRI: 1. No acute intracranial abnormalities. 2. Localized hemosiderin deposition within the left subinsular region would be consistent with solitary cavernous malformation. BRAIN MR ANGIOGRAM: No hemodynamically significant lesions of the central intracranial vasculature. NECK MR ANGIOGRAM: No hemodynamically significant lesions of the extracranial neck vasculature. The estimate of stenosis included in the report of the imaging study was calculated using the NASCET method Dictated by: Reno Chapin M.D. on 01/28/2017 at 21:53 ECG 12 Lead EKG: Sinus rhythm, tachycardic heart rate 110, normal axis, normal intervals, normal R-wave progression, peaked T waves in lead V2 -V3, no pathological Q waves or acute ischemic changes such as ST elevation or depression. . Brief History per HPI Guy Nguyen Junior is a 46-year-old male with a past medical history significant for CAD status post DE with stenting 3, hypertension, hyperlipidemia, diabetes mellitus type II, insulin using, with complication of diabetic nephropathy, tobacco use disorder, and chronic kidney disease stage IV who presented to [facility] emergency Department due to confusion. The patient reports that he was going to meet his father in [place] and ended up in [place]. He then drove to [place] and decided to call his as he was unsure of what he was doing or where he was going. He then went to his parent's house in [place] who subsequently urged him to go to the emergency department. He reports that he has had a headache, nausea, and vomited 1. Per ER physician's report, his reported that he had slurred speech, stuttering and was confused when he called her on the phone. His last known normal was at 1000 this morning. The patient does not remembering anything from [id number]. The patient reports taking methocarbamol for the first time last night, and woke up in the middle of the night with hallucinations. He also reports experiencing a headache, left-sided head numbness, epigastric abdominal pain, weakness, vomiting, and arthralgia. He denies vision changes, sore throat, cough, shortness of breath, fever, chills, dysuria, diarrhea or constipation. Vital signs in the ER: Temperature 37.0. Pulse 122. Respiratory rate 18. Blood pressure 170/109. Pulse ox 90% on room air. He was given acetaminophen 975 mg 1 and hydromorphone 1 mg 1 in the ED. PCP is Dr. Prasad Alexis. Control Systems Designer is Dr. Tai Ryan. . Hospital Course Guy Nguyen Junior is a 46-year-old male with a past medical history significant for CAD status post DE with stenting 3, hypertension, hyperlipidemia, diabetes mellitus type II, insulin using, with complication of diabetic nephropathy, tobacco use disorder, and chronic kidney disease stage IV who presented to [facility] emergency Department due to confusion. 1. Acute encephalopathy due to methocarbamol adverse effect , present on admission. Active. - The patient presented with transient confusion, slurred speech, and a period of amnesia without facial droop or focal extremity weakness. -TIA unlikely given onset after new medication. litrature review is also consistent with adverse effect of methocarbamol.listed as adverse rxn on allergy list .advised to avoid in the future - NIHSS on admission was 0. - CT brain without contrast did not demonstrate any acute intracranial abnormalities. - echocardiogram considered but no need given the temporal relation of onset with adverse effect.no arrythmia also on telemetry - Continue aspirin 81 mg daily and Plavix 75 mg daily. - Avoid narcotics due to acute encephalopathy. -MRI/MRA negative Chronic problems: 2. CAD status post DE with stenting x 3 vessels. - Continue Plavix 75 mg daily and aspirin 81 mg daily. 3. Multi-drug resistant hypertension, present on admission. Stable. - Continue chlorthalidone 25 mg daily, clonidine 1 patch topically every 7 days , lisinopril 20 mg daily, torsemide 20 mg daily and hydralazine 100 mg twice a day. 4. Hypertriglyceridemia, present on admission. Stable. - Continue Gemfibrozil 600 mg twice a day before meals. - Ordered fasting lipid panel in the morning. 5. Diabetes mellitus type II, insulin using, with complication of diabetic nephropathy. - Last hemoglobin A1c 7.8% on 12/2016. Repeat hemoglobin A1c pending. - Once patient cleared by speech ordered a carbohydrate insistent/heart healthy diet. - Continue Lantus 40 units every morning. 6. Chronic kidney disease stage IV, present on admission. Stable. - Initial creatinine on admission was 2.70. Baseline creatinine 2.5-2.8. - Avoid nephrotoxic agents. - Continue sodium bicarbonate 650 mg daily. - Continue to monitor creatinine daily. - The patient is seen by Dr. Ryan of nephrology. 7. Obstructive sleep apnea not on CPAP, present on admission. Stable. - May use nocturnal oxygen as necessary. 8. Chronic back pain, present on admission. Stable. - Avoid narcotics due to acute encephalopathy. - May use Tylenol as needed for now. 9. Chronic pancreatitis secondary to hypertriglyceridemia, not present on admission. Stable. - Patient reports he has been having some epigastric tenderness. PE was benign. - Lipase 87 but in context of chronic pancreatitis would not be elevated. - If patient against to have symptoms consistent with pancreatitis will consider CT abdomen and pelvis. 10. Seasonal allergies, present on admission. Stable. - Continue cetirizine 10 mg daily at bedtime. 11. Depression, present on admission. Stable. - Continue duloxetine 90 mg daily. 12. Insomnia, present on admission. Stable. - Continue trazodone 50 mg daily at bedtime as needed for insomnia. 13. Tobacco use disorder, present on admission. Stable. - Ordered nicotine patch as needed for nicotine withdrawal. 14. History of right-sided Truong's palsy. - Unclear previous etiology of right-sided Truong's palsy. 15. Gout, not present on admission. Stable. - Continue colchicine 0.6 mg daily. discharge home condition stable Exam Vital Signs (Last) Date Time Temp Pulse Resp B/P Pulse Ox O2 Delivery O2 Flow Rate FiO2 01/29/17 13:40 37.0 60 18 155/101 96 Room Air Exam General: Middle-aged male lying in bed and in no acute distress, well-developed , well-nourished, appropriately interactive. HEENT: Normocephalic, atraumatic. External ears without defect. Pupils equal, round, and reactive to light. Anicteric sclerae, moist conjunctivae, and no lid lag. Oropharynx free of erythema and cobble stoning with moist mucosa. Neck: Supple with full range of motion. No jugular venous distension. No bruits. No lymphadenopathy or thyromegaly. Cardiovascular: Regular rate and rhythm without murmurs, rubs, or gallops appreciated Pulmonary: Clear to auscultation bilaterally without crackles, wheezes, or rhonchi. Normal respiratory effort with no use of accessory muscles. Abdomen: Soft, very mild tenderness to palpation in midepigastrium, nondistended , bowel sounds present. No hepatosplenomegaly or masses appreciated. Extremities: No clubbing, cyanosis, or edema. Skin: Normal temperature, turgor, and texture; no rash, ulcers, or subcutaneous nodules appreciated. Neurological: Cranial nerves grossly intact. Normal muscle strength, tone, and bulk except for chronic upper extremity weakness. No dysmetria. Plantar reflexes normal. Deep tendon reflexes, coordination, and sensory function within normal limits. No known gait impairment. Psychiatric: Normal mood and flat affect. Alert and oriented to person, place, and time. Test 01/28/17 14:05 01/29/17 05:32 Prothrombin Time 10.0sec (8.1-12.5) Prothromb Time International Ratio 0.94ratio Activated Partial Thromboplast Time 24.6sec (22.8-33.0) Hemoglobin A1c 8.7% (4.8-5.6) Magnesium Level 1.7mg/dL (1.6-2.6) Total Bilirubin 0.2mg/dL (0.0-1.2) Aspartate Amino Transf (AST/SGOT) 13U/L (0-50) Alanine Aminotransferase (ALT/SGPT) 14U/L (0-44) Alkaline Phosphatase 67U/L (25-150) Troponin T 0.026ug/L (0.0-0.011) Total Protein 7.9g/dL (6.4-8.4) Albumin 4.6g/dL (3.4-5.0) Lipase 87U/L (13-60) Hold [place] Top Tube Received (Received) White Blood Count 6.3th/mm3 (3.8-10.1) Red Blood Count 4.55mil/mm3 (4.40-5.80) Hemoglobin 13.7g/dL (13.8-17.2) Hematocrit 38.1% (41.0-50.0) Mean Corpuscular Volume 83.7fL (81-100) Mean Corpuscular Hemoglobin 30.1pg (27.0-35.0) Mean Corpuscular Hemoglobin Concent 36.0% (32.0-37.0) Red Cell Distribution Width 13.1% (12.3-15.4) Platelet Count 138bil/L (150-400) Neutrophils (%) (Auto) 41.6% (40-74) Lymphocytes (%) (Auto) 49.4% (14-46) Monocytes (%) (Auto) 5.3% (4-12) Eosinophils (%) (Auto) 3.0% (0-5) Basophils (%) (Auto) 0.5% (0-3) Sodium Level 136mEq/L (134-144) Potassium Level 4.8mEq/L (3.5-5.2) Chloride Level 102mEq/L (97-108) Carbon Dioxide Level 17mmol/L (18-29) Blood Urea Nitrogen 56mg/dL (6-24) Creatinine 2.79mg/dL (0.76-1.27) Estimat Glomerular Filtration Rate 26mL/min (>59) Glucose Level 270mg/dL (60-99) Calcium Level 9.0mg/dL (8.5-10.1) Triglycerides Level 713mg/dL (0-149) Cholesterol Level 195mg/dL (100-199) LDL Cholesterol, Calculated 29.400mg/dL (0-99) VLDL Cholesterol 142.600mg/dL HDL Cholesterol 23mg/dL (>39) Cholesterol/HDL Ratio 8.48 (0.0-4.4) Discharge Medications Discharge Medications Aspirin (Aspirin) 81 Mg Tablet 81 MG PO DAILY (Reported) Cetirizine HCl (Zyrtec) 10 Mg Capsule 10 MG PO HS (Reported) Chlorthalidone (Chlorthalidone) 25 Mg Tablet 25 MG PO DAILY Prescribed by: RUFINO MCINTOSH DO Clonidine 0.3 mg/day Patch (Catapres TTS-3) 1 Each Patch 1 PATCH TOPICAL Q7D Prescribed by: LION MUNIZ MD Clopidogrel Bisulfate (Plavix) 75 Mg Tablet 75 MG PO DAILY Prescribed by: TRISTIN FORD MD Duloxetine (Duloxetine) 60 Mg Capsule.dr 90 MG PO DAILY (Reported) Gemfibrozil (Lopid) 600 Mg Tablet 600 MG PO BIDAC Prescribed by: TRISTIN FORD MD Lisinopril (Lisinopril) 20 Mg Tablet 20 MG PO DAILY Prescribed by: LION MUNIZ MD Sodium Bicarbonate (Sodium Bicarbonate) 650 Mg Tablet 650 MG PO DAILY (Reported ) Torsemide (Torsemide) 20 Mg Tablet 20 MG PO DAILY (Reported) As needed Colchicine (Colchicine) 0.6 Mg Capsule 0.6 MG PO DAILY PRN PRN AD (Reported) Insulin Glargine (Lantus U100 Solostar Insulin Pen) 100 Unit/1 Ml Insuln.pen 40 UNIT SUBQ BID PRN PRN Blood Sugar above 80 (Reported) Insulin Regular, Human (HUMulin-R U100 Insulin Vial) 100 Unit/1 Ml Vial Unknown Dose SUBQ ACHS PRN PRN AD (Reported) Nitroglycerin SL (Nitrostat) 0.4 Mg Tab.subl 0.4 MG SL Q5MIN PRN PRN For Chest Pain Prescribed by: COLIN RAMIREZ MD Trazodone (Trazodone) 50 Mg Tablet 50 MG PO HS PRN PRN prn (Reported) Followup Plan Disposition: home Discharge Diet: Low fat, Low Sodium, Heart Healthy, Diabetic Discharge Activity: Limited until seen by PCP Patient Instructions # You were hospitalized due to acute confusion. It seems it is due to methocarbamol adverse reaction. Please do not take/avoid methocarbamol use in the feature. MRI of brain and neck arteries unremarkable. Please follow-up with PCP in 1-2 weeks. Follow-up Provider: Last Wagner DO Follow-up with PCP in: 1 week copies to: Last Wagner DO Jamie Nicole MD Jan 29, 2017 21:57
== END 2017-01-29 17:12 | disposition home or self-care (01) ==
LOC: SED 13:46 → MPC 16:39
PROVIDERS: ADMIT Internal Medicine; ATTEND Internal Medicine
DX: G93.40 Encephalopathy, unspecified (principal); T42.8X5A Adverse effect of antiparkinsonism drugs and other central muscle-tone depressants, initial encounter; I25.10 Atherosclerotic heart disease of native coronary artery without angina pectoris; I25.2 Old myocardial infarction; E78.1 Pure hyperglyceridemia; E11.22 Type 2 diabetes mellitus with diabetic chronic kidney disease; I12.9 Hypertensive chronic kidney disease with stage 1 through stage 4 chronic kidney disease, or unspecified chronic kidney disease; N18.4 Chronic kidney disease, stage 4 (severe); G47.33 Obstructive sleep apnea (adult) (pediatric); M54.9 Dorsalgia, unspecified; K86.1 Other chronic pancreatitis; J30.2 Other seasonal allergic rhinitis; F32.9 Major depressive disorder, single episode, unspecified; G47.00 Insomnia, unspecified; F17.210 Nicotine dependence, cigarettes, uncomplicated; G51.0 Bell's palsy; M10.9 Gout, unspecified; Z87.891 Personal history of nicotine dependence; Z95.5 Presence of coronary angioplasty implant and graft; Z79.4 Long term (current) use of insulin; Z79.02 Long term (current) use of antithrombotics/antiplatelets; Z79.82 Long term (current) use of aspirin
CPT/HCPCS: 36415; 70450; 70549; 70553; 71010; 80048; 80053; 80061; 83036; 83690; 83735; 84484; 85025; 85610; 85730; 92610; 93005; 96374; 97165; 99285; A9585; G0378; J1644; J1815